=== PATIENT | male | born 1945 | race Caucasian/White ===

== ENCOUNTER → 2019-09-13 16:21 | Outpatient (BNVA) | payer MEDICARE, SELFPAY | PROVIDERS: Family Provider Nurse Practitioner Family; PCP Nurse Practitioner Family; Visit Provider Family Medicine | DX: R53.83 Other fatigue (principal) | CPT/HCPCS: 82306; 82607; 84443; 85025 ==

== ENCOUNTER → 2020-04-02 15:49 | Outpatient (BNVA) | payer MEDICARE, SELFPAY | PROVIDERS: Family Provider Nurse Practitioner Family; PCP Nurse Practitioner Family; Visit Provider Family Medicine | DX: E78.2 Mixed hyperlipidemia (principal); I10 Essential (primary) hypertension | CPT/HCPCS: 80053; 80061; 85025 ==

== ENCOUNTER 2020-09-17 17:19 | Inpatient (IN) | payer MEDICARE, SELFPAY ==
[2020-09-17] VITALS (8 sets, daily range): BP systolic 165–188; BP diastolic 80–141; PULSE 52–60; RESP 12–18; TEMP 36.6; O2SAT 94–99; BMI 30.2
--- NOTE | 2020-09-17 17:25 | XRR_ITS ---
PROCEDURE INFORMATION: Exam: XR Chest Exam date and time: 09/17/2020 6:05 PM Age: 74 years old Clinical indication: Chest pain; Type not specified; Prior surgery; Surgery type: Stents, appy TECHNIQUE: Imaging protocol: XR of the chest Views: 1 view. COMPARISON: No relevant prior studies available. FINDINGS: Lungs: No pneumonia or pulmonary edema. Pleural spaces: No pleural effusion or pneumothorax. Heart/Mediastinum: The cardiac silhouette is not enlarged. There is coronary artery disease. Vasculature: The thoracic aorta is atherosclerotic but not aneurysmal. Bones/joints: Multilevel disc degeneration in the thoracic spine. XR/XR chest 1V portable [id number] IMPRESSION: Coronary artery disease.
--- NOTE | 2020-09-17 17:27 | ECG_ITS ---
[facility] Test Date: 2020-09-17 Pat Name: Eddie Ortega Department: Room: Gender: Male Software Support Specialist: : 1945 Requested By: Omar Johns Order Number: [id number] Reading MD: BARRETT XIONG Measurements Intervals [place] Rate: 56 P: 5 DC: 142 QRS: -51 QRSD: 115 T: -33 QT: 391 QTc: 377 Interpretive Statements SINUS BRADYCARDIA PATTERN CONSISTENT WITH PULMONARY DISEASE INCOMPLETE RIGHT BUNDLE BRANCH BLOCK [90+ ms QRS DURATION, TERMINAL R IN V1/V2, 40+ ms S IN I/aVL/V4/V5/V6] LEFT ANTERIOR FASCICULAR BLOCK [QRS AXIS <= -45, QR IN I, RS IN II] MINIMAL VOLTAGE CRITERIA FOR LVH, CONSIDER NORMAL VARIANT [MEETS CRITERIA IN ONE OF: R(aVL), S(V1), R(V5), R(V5/V6)+S(V1)] NONSPECIFIC ST & T-WAVE ABNORMALITY No previous ECG available for comparison Electronically Signed On 09-17-2020 18:27:45 SYSTEM ADMINISTRATION ADVISOR by BARRETT XIONG [id number]
--- NOTE | 2020-09-17 17:46 | W.ED.CHESTPA ---
Documented by User: Omar Adames DO 09/18/20 06:21 HPI - Chest Pain General: Chief Complaint: Chest Pain Stated Complaint: CP Time Seen by Provider: 09/17/20 17:25 History of Present Illness: HPI narrative: 74-year-old male presents with complaint of chest discomfort and shortness of breath. Is been going off and on for the last 2 weeks. He states he frequently gets it when he walks to his horse [place] which is about 500 feet and has some elevation change. It will last around 5 minutes it radiates into his jaw down to his level of his wrist. Today he had a much more intense and longer lasting episode than he has in the past. He does not have any nitro at home. He does take aspirin and clopidogrel. He had a stent placed around 15 years ago at a different hospital. In the last 5 years he has not had any stress testing. 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 Onset (ago): week(s) Timing of current episode: episodic Prior episodes: Yes Onset: during exertion Pain location: substernal and left chest Pain radiation: left arm, neck and left shoulder Severity: moderate Quality: tightness and heaviness Relieving factors: rest Exacerbating factors: exertion Associated symptoms: Deny abdominal pain, dyspnea, fever(s), nausea or vomiting Treatment prior to arrival: none Review of Systems Const: Denies: fever(s), chills, body aches, change in appetite, fatigue or malaise ENMT: Denies: throat pain, ear or mastoid pain, nasal discharge or nasal congestion Card: Denies: chest pain, edema, dyspnea on exertion or orthopnea Resp: Denies: dyspnea, productive cough or non-productive cough GI: Denies: abdominal pain, nausea, vomiting, hematemesis, coffee ground emesis, diarrhea, constipation, bloating, hematochezia or melena : Denies: flank pain, dysuria, urinary frequency or urinary urgency Skin/Breast: Denies: rash or pruritus PFSH ED PFSH: Medical History CAD (coronary artery disease) Hyperlipidemia Hypertension Surgical History History of tonsillectomy (1956) Hx of appendectomy (~1958) Family History (Updated 09/17/20 @ 23:09 by Vanessa Gomez MD) Father CAD (coronary artery disease) Father had open heart surgery in his 70s Social History Smoking and tobacco status: never smoked Alcohol intake: never Substance/Drug Use: never Marital status: Physical Exam Const: COMMON NORMALS: no acute distress GENERAL APPEARANCE: cooperative and comfortable ORIENTATION/CONSCIOUSNESS: Yes awake, Yes oriented to person, Yes oriented to place and Yes oriented to time HENMT: COMMON NORMALS: normocephalic, atraumatic and hearing grossly normal bilaterally HEAD & SCALP: normocephalic and atraumatic Neck/C-Spine: COMMON NORMALS: no JVD Resp: COMMON NORMALS: normal respiratory effort, No retractions, No use of accessory muscles and clear to auscultation bilaterally AUSCULTATION: clear to auscultation bilaterally Cardio: COMMON NORMALS: no JVD, regular rate, regular rhythm and No murmurs present (Cardio) RATE: regular rate RHYTHM: regular rhythm GI: COMMON NORMALS: Soft to palpation and No hepatosplenomegaly present AUSCULTATION: Yes normoactive bowel sounds PALPATION: Yes Soft to palpation, No Tenderness to palpation present (GI), No Guarding due to palpation present (GI) and Yes No hepatosplenomegaly present Extremity: COMMON NORMALS: normal to inspection, capillary refill normal, no clubbing, cyanosis or edema, no calf tenderness and no pedal edema Neuro: SENSORIUM/ORIENTATION: Yes oriented to person, Yes oriented to place and Yes oriented to time Skin: COMMON NORMALS: no rashes or lesions noted GENERAL SKIN EXAM: no rashes or lesions noted Course Vital Signs: Vital signs: Vital Signs Temperature 98.3 F 09/18/20 04:00 Pulse Rate 47 L 09/18/20 05:03 Respiratory Rate 22 H 09/18/20 04:00 Blood Pressure 104/79 09/18/20 04:00 Pulse Oximetry 96 09/18/20 04:00 MDM - Chest Pain MDM Narrative: Medical decision making narrative: Patient initially briefly seen at the end of my shift and care transferred to Dr. Mejia. Initial chest pain labs ordered. Patient is a known history of coronary artery disease and describes increasing episodes of angina brought on by exertion. Discussed with Dr. Mejia anticipate the patient will need to be admitted for rule out and possible stress testing pending results of his labs. See Dr. Mejia's note for final gnosis and disposition. Lab Data: Labs: Lab Results 09/17/20 09/17/20 09/17/20 Range/Units 17:54 17:54 17:54 WBC 6.8 (4.0-10.0) 10^3/ uL RBC 4.74 (4.1-5.3) 10^6/u L Hgb 14.7 (11.7-16.6) g/dL Hct 42.3 (42.0-52.0) % MCV 89.2 (80-94) fL MCH 31.0 (28.0-34.0) pg MCHC 34.8 (30.0-36.0) g/dL RDW 12.1 (12.1-15.1) % Plt Count 214 (130-400) 10^3/c mm MPV 10.0 (7.4-10.4) fL Neut % (Auto) 58.7 % Lymph % (Auto) 25.5 % Howard % (Auto) 12.4 % Eos % (Auto) 2.4 % Baso % (Auto) 0.7 % Neut # (Auto) 3.96 (1.8-7.7) 10^3/u L Lymph # (Auto) 1.7 (0.8-4.8) 10^3/u L Howard # (Auto) 0.8 (0.2-0.9) 10^3/u L Eos # (Auto) 0.2 (0.0-0.8) 10^3/u L Baso # (Auto) 0.1 (0.0-0.1) 10^3/u L Nucleated RBC % (a uto) 0 % Nucleated RBCs # 0.0 /100WBC Sodium 140 (136-145) mmol/L Potassium 4.7 (3.5-5.1) mmol/L Chloride 103 (98-107) mmol/L Carbon Dioxide 26 (22-29) mmol/L Anion Gap 15.7 (5-19) BUN 24 H (8-23) mg/dL Creatinine 1.7 H (0.7-1.2) mg/dL GFR Calculation Not Reportable Glucose 106 (65-115) mg/dL Calculated Osmolal ity 294 (285-295) mOsm/k g Calcium 9.8 (8.5-10.5) mg/dL Total Bilirubin 0.4 (0.15-1.2) mg/dL AST 29 (0-40) U/L ALT 41 (0-41) U/L Alkaline Phosphata se 67 (40-130) IU/L Troponin T Baselin e 311 H* (0-15) ng/L Total Protein 7.0 (6.6-8.7) g/dL Albumin 4.6 (3.5-5.2) g/dL Globulin 2.4 (1.3-4.6) g/dL Discharge Plan Discharge Patient Disposition: Admitted As Inpatient Admit Provider: Arpit Willams Clinical Impression: Non-ST elevation DE (NSTEMI) Condition: Stable Coding Level of Care Code ED Oil Program Compliance Specialist for Chg Fwd Exam Comprehensive Documented by User: Grisel Mejia MD 09/17/20 20:21 HPI - Chest Pain General: Chief Complaint: Chest Pain Stated Complaint: CP Time Seen by Provider: 09/17/20 17:25 [facility] ED PFSH: Medical History CAD (coronary artery disease) Hyperlipidemia Hypertension Surgical History History of tonsillectomy (1956) Hx of appendectomy (~1958) Family History (Updated 09/17/20 @ 23:09 by Vanessa Gomez MD) Father CAD (coronary artery disease) Father had open heart surgery in his 70s Social History Smoking and tobacco status: never smoked Alcohol intake: never Substance/Drug Use: never Marital status: Physical Exam Const: COMMON NORMALS: no acute distress, patient oriented x3 and healthy appearing HENMT: COMMON NORMALS: normocephalic and atraumatic HEAD & SCALP: normocephalic and atraumatic Eye: COMMON NORMALS: Equal, round and reactive pupils present and EOMs intact bilaterally PUPIL: Yes Equal, round and reactive pupils present Neck/C-Spine: COMMON NORMALS: full ROM and supple Chest: COMMONS NORMALS: normal inspection of the chest and normal palpation of entire chest wall Resp: COMMON NORMALS: normal respiratory effort, No retractions, No use of accessory muscles and clear to auscultation bilaterally AUSCULTATION: clear to auscultation bilaterally Cardio: COMMON NORMALS: regular rate, regular rhythm and No murmurs present (Cardio) RATE: regular rate RHYTHM: regular rhythm GI: COMMON NORMALS: Normal to inspection, nondistended, normoactive bowel sounds present, Soft to palpation, non-tender and no masses PALPATION: Yes Soft to palpation Extremity: COMMON NORMALS: normal to inspection and full ROM Neuro: COMMON NORMALS: patient oriented x3, moves all extremities and no focal motor deficits Psych: COMMON NORMALS: mental status grossly normal, Normal thought process present and cooperative THOUGHT PROCESS: Normal thought process present Skin: COMMON NORMALS: no rashes or lesions noted and no wounds GENERAL SKIN EXAM: no rashes or lesions noted Course Vital Signs: Vital signs: Vital Signs Temperature 98.3 F 09/18/20 04:00 Pulse Rate 47 L 09/18/20 05:03 Respiratory Rate 22 H 09/18/20 04:00 Blood Pressure 104/79 09/18/20 04:00 Pulse Oximetry 96 09/18/20 04:00 MDM - Chest Pain MDM Narrative: Medical decision making narrative: Patient presents here with chest pain with elevated troponin consistent with a non-ST elevation DE. Patient is pain-free here. I did give him Lovenox I spoke to the hospitalist and will admit at this time. Lab Data: Labs: Lab Results 09/17/20 09/17/20 09/17/20 Range/Units 17:54 17:54 17:54 WBC 6.8 (4.0-10.0) 10^3/ uL RBC 4.74 (4.1-5.3) 10^6/u L Hgb 14.7 (11.7-16.6) g/dL Hct 42.3 (42.0-52.0) % MCV 89.2 (80-94) fL MCH 31.0 (28.0-34.0) pg MCHC 34.8 (30.0-36.0) g/dL RDW 12.1 (12.1-15.1) % Plt Count 214 (130-400) 10^3/c mm MPV 10.0 (7.4-10.4) fL Neut % (Auto) 58.7 % Lymph % (Auto) 25.5 % Howard % (Auto) 12.4 % Eos % (Auto) 2.4 % Baso % (Auto) 0.7 % Neut # (Auto) 3.96 (1.8-7.7) 10^3/u L Lymph # (Auto) 1.7 (0.8-4.8) 10^3/u L Howard # (Auto) 0.8 (0.2-0.9) 10^3/u L Eos # (Auto) 0.2 (0.0-0.8) 10^3/u L Baso # (Auto) 0.1 (0.0-0.1) 10^3/u L Nucleated RBC % (a uto) 0 % Nucleated RBCs # 0.0 /100WBC Sodium 140 (136-145) mmol/L Potassium 4.7 (3.5-5.1) mmol/L Chloride 103 (98-107) mmol/L Carbon Dioxide 26 (22-29) mmol/L Anion Gap 15.7 (5-19) BUN 24 H (8-23) mg/dL Creatinine 1.7 H (0.7-1.2) mg/dL GFR Calculation Not Reportable Glucose 106 (65-115) mg/dL Calculated Osmolal ity 294 (285-295) mOsm/k g Calcium 9.8 (8.5-10.5) mg/dL Total Bilirubin 0.4 (0.15-1.2) mg/dL AST 29 (0-40) U/L ALT 41 (0-41) U/L Alkaline Phosphata se 67 (40-130) IU/L Troponin T Baselin e 311 H* (0-15) ng/L Total Protein 7.0 (6.6-8.7) g/dL Albumin 4.6 (3.5-5.2) g/dL Globulin 2.4 (1.3-4.6) g/dL Discharge Plan Discharge Patient Disposition: Admitted As Inpatient Admit Provider: Arpit Willams Clinical Impression: Non-ST elevation DE (NSTEMI) Condition: Stable Coding Level of Care Code ED Oil Program Compliance Specialist for g Fwd Exam Comprehensive
[2020-09-17 18:00] LABS: Basophils # 0.1 10^3/uL (0.0-0.1); Basophils % 0.7 %; Eosinophils # 0.2 10^3/uL (0.0-0.8); Eosinophils % 2.4 %; Hematocrit 42.3 % (42.0-52.0); Hemoglobin 14.7 g/dL (11.7-16.6); Lymphocytes # 1.7 10^3/uL (0.8-4.8); Lymphocytes % 25.5 %; Mean Corpuscular HGB Conc 34.8 g/dL (30.0-36.0); Mean Corpuscular Volume 89.2 fL (80-94); Monocytes # 0.8 10^3/uL (0.2-0.9); Monocytes % 12.4 %; Neutrophils # 3.96 10^3/uL (1.8-7.7); Neutrophils % 58.7 %; Nucleated Red Blood Cells % 0 %; Platelet Count 214 10^3/cmm (130-400); Red Blood Count 4.74 10^6/uL (4.1-5.3); Red Cell Distribution Width 12.1 % (12.1-15.1); White Blood Count 6.8 10^3/uL (4.0-10.0)
[2020-09-17 18:26] LABS: Alanine Aminotransferase 41 U/L (0-41); Albumin Level 4.6 g/dL (3.5-5.2); Alkaline Phosphatase 67 IU/L (40-130); Anion Gap 15.7 (5-19); Aspartate Amino Transferase 29 U/L (0-40); Blood Urea Nitrogen 24 mg/dL (8-23); Calcium 9.8 mg/dL (8.5-10.5); Carbon Dioxide 26 mmol/L (22-29); Chloride 103 mmol/L (98-107); Globulin 2.4 g/dL (1.3-4.6); Glucose 106 mg/dL (65-115); Osmolality Calculated 294 mOsm/kg (285-295); Potassium 4.7 mmol/L (3.5-5.1); Sodium 140 mmol/L (136-145); Total Bilirubin 0.4 mg/dL (0.15-1.2)
[2020-09-17 18:27] LABS: Troponin(5th) Baseline 311 ng/L (0-15)
[2020-09-17] MEDS: enoxaparin 100 mg/mL Syringe SUBCUT (18:35)
[2020-09-17] MEDS: sodium chloride 0.9% 1,000 ML 999 ML IV (18:35)
--- NOTE | 2020-09-17 19:27 | ECG_ITS ---
[facility] Test Date: 2020-09-17 Pat Name: Eddie Ortega Department: Room: 111 Gender: Male Regional Cra: : 1945 Requested By: Omar Johns Order Number: [id number] Reading MD: Vanessa Gomez M.D. Measurements Intervals [place] Rate: 50 P: 60 CO: 156 QRS: -46 QRSD: 110 T: -35 QT: 434 QTc: 396 Interpretive Statements SINUS BRADYCARDIA PATTERN CONSISTENT WITH PULMONARY DISEASE LEFT ANTERIOR FASCICULAR BLOCK [QRS AXIS <= -45, QR IN I, RS IN II] NONSPECIFIC ST & T-WAVE ABNORMALITY Compared to ECG 09/17/2020 17:34:38 Incomplete right bundle-branch block no longer present T-wave abnormality still present Electronically Signed On 09-18-2020 23:54:38 EXTRACTOR OPERATOR HELPER by Vanessa Gomez M.D. [id number]
--- NOTE | 2020-09-17 20:23 | PM.HP ---
Providers/Chief Complaint Admitting Physician: Arpit Willams MD Chief Complaint: CP History of Present Illness Eddie Ortega is a 74 year old male with a past medical history of CAD status post stenting x2, over 15 years ago, is on aspirin and Plavix, hypertension, hyperlipidemia, who presents to [facility] due to chest pain. Patient tells me that 15 years ago, he had an episode of severe chest pain, he was in [place] at that time, he had 2 stents placed, he does not remember when, he seems like he tolerated the procedure well, he did well after, he is not sure why he is both on aspirin and Plavix for the last 15 years, no other stents placed, he was not told that he was high risk, but tells me that his casting machine adjuster at that time believed that there was a recent study that showed dual antiplatelet therapy over a year showed some benefit. Denies smoking. No history of COPD. No history of's CHF, no history of strokes. No peripheral vascular disease. 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 He tells me roughly 2 weeks ago he started to develop substernal chest pain, that ran across his chest, lasting a few seconds, he thought it might be acid reflux, as the chest pain would resolve when burping. However the chest pain became much more severe, radiating down both arms, radiating up into his jaw, no shortness of breath, no diaphoresis, no lightheadedness, no dizziness. As the chest pain became much more severe and prolonged, this morning he had severe episodes of chest pain, so his forced him to come to the hospital. Patient currently chest pain-free, has not required any nitro, was given therapeutic Lovenox,. His troponin was found to be 300. EKG showed left anterior fascicular block, incomplete RBBB, slight ST depressions in anterior chest leads, no acute ST-T wave changes, hospitalist team was called for admission. Review of Systems Const: Denies: fever(s), chills, fatigue or malaise Eyes: Denies: change in vision or blurry vision ENMT: Denies: nasal congestion Card: Reports: chest pain; Denies: edema or syncope Resp: Denies: dyspnea, productive cough, non-productive cough or wheezing GI: Denies: abdominal pain, nausea, vomiting, hematemesis, diarrhea, constipation, hematochezia or melena : Denies: flank pain, difficulty urinating, dysuria or urinary frequency Musc: Denies: neck pain or back pain Skin/Breast: Denies: rash Neuro: Denies: headache(s), dizziness or vertigo Psych: Denies: anxiety or depression Endo: Denies: polyuria or polydipsia Medications/Allergies Home Medications Medication Instructions Recorded Confirmed Last Taken Type aspirin 81 mg tablet,delayed 81 mg PO DAILY@20 09/13/19 09/17/20 09/16/20 History release cholecalciferol (vitamin D3) 125 5,000 unit PO DAILY@09/13/19 09/17/20 09/16/20 History mcg (5,000 unit) capsule melatonin 10 mg tablet 10 mg PO BEDTIME@20 tab 09/13/19 09/17/20 09/16/20 History Plavix 75 mg PO DAILY@20 09/17/20 09/17/20 09/16/20 History lisinopril 2.5 mg PO DAILY@20 09/17/20 09/17/20 09/16/20 History simvastatin 40 mg PO DAILY@20 09/17/20 09/17/20 09/16/20 History Allergies Allergy/AdvReac Type Severity Reaction Status Date / Time No Known Allergies Allergy Verified 04/02/20 14:49 PFSH Acute PFSH: Medical History (Updated 09/17/20 @ 20:32 by Arpit Willams MD) CAD (coronary artery disease) Hyperlipidemia Hypertension Surgical History History of tonsillectomy (1956) Hx of appendectomy (~1958) Family History (Updated 09/17/20 @ 20:29 by Arpit Willams MD) Father CAD (coronary artery disease) Social History (Updated 09/17/20 @ 20:29 by Arpit Willams MD) Smoking and tobacco status: never smoked Alcohol intake: never Substance/Drug Use: never Marital status: Vitals/I&O/Wt Last Vital Signs Temp 97.9 F 09/17/20 17:23 Pulse 60 09/17/20 19:57 Resp 18 09/17/20 19:57 BP 188/141 09/17/20 19:57 Pulse Ox 98 09/17/20 19:57 09/17/20 09/17/20 09/17/20 06:59 14:59 22:59 Intake Total 1000 / 1000 Balance 1000 / 1000 Weight last 48 hrs Weight 99.79 kg Physical Exam Const: COMMON NORMALS: no acute distress and patient oriented x3 GENERAL APPEARANCE: cooperative and comfortable HENMT: COMMON NORMALS: normocephalic HEAD & SCALP: normocephalic Eye: COMMON NORMALS: Equal, round and reactive pupils present and EOMs intact bilaterally GENERAL EYE: appearance normal, both eyes and all related structures PUPIL: Yes Equal, round and reactive pupils present Neck/C-Spine: COMMON NORMALS: full ROM, no lymphadenopathy, no JVD and Thyroid normal THYROID: Thyroid normal Lymph: LYMPHATIC: no lymphadenopathy noted Resp: COMMON NORMALS: normal respiratory effort, No retractions, No use of accessory muscles and clear to auscultation bilaterally AUSCULTATION: clear to auscultation bilaterally Cardio: COMMON NORMALS: no JVD, regular rate, regular rhythm, S1 normal heart sound present, S2 normal heart sound present, No gallops present (Cardio), No clicks present (Cardio) and No murmurs present (Cardio) RATE: regular rate RHYTHM: regular rhythm HEART SOUNDS: S1 normal heart sound present and S2 normal heart sound present GI: COMMON NORMALS: Normal to inspection, nondistended, normoactive bowel sounds present, Soft to palpation, non-tender and No hepatosplenomegaly present PALPATION: Yes Soft to palpation and Yes No hepatosplenomegaly present Extremity: COMMON NORMALS: normal to inspection, full ROM and no pedal edema Neuro: COMMON NORMALS: patient oriented x3, CN's II-XII intact bilaterally, moves all extremities and no focal motor deficits Psych: COMMON NORMALS: mental status grossly normal, Normal thought process present and cooperative THOUGHT PROCESS: Normal thought process present Data : 09/17/20 17:54 09/17/20 17:54 A&P Assessment and plan (1) Non-ST elevation HI (NSTEMI): -Baseline troponin 300, EKG shows sinus bradycardia, left anterior fascicular block, incomplete RBBB, slight ST depressions in anterior leads, no acute ST-T wave changes, no active chest pain Plan: -Trend troponins, serial EKGs, monitor for chest pain -Aspirin, Plavix, statin, therapeutic Lovenox -Cardiac echocardiogram ordered -Telemetry monitoring -BMP, TSH, lipid panel -N.p.o. midnight -Cardiology on consult, hopefully will have a cardiac catheterization tomorrow morning Status: Acute (2) Hypertensive emergency: -With NSTEMI, no active chest pain, and ALEXA, tells me that his blood pressures are normally less than 120s over 80s, currently in the ER it is over the 200s/ 140 -We will start nitro drip -With goal reduce blood pressure less than 160/100, avoid reducing mean arterial pressure more than 25 to 30% overs several hours Status: Acute (3) Hypertension: Status: Acute Qualifiers: Hypertension type: essential hypertension Qualified Code(s): I10 - Essential (primary) hypertension (4) Hyperlipidemia: Status: Acute Qualifiers: Hyperlipidemia type: mixed hyperlipidemia Qualified Code(s): E78.2 - Mixed hyperlipidemia (5) CAD (coronary artery disease): Status: Acute (6) ALEXA (acute kidney injury): Creatinine 1.7, baseline creatinine unknown, gentle IV hydration Status: Acute Attestations Medical Necessity Statement*: Patient requires hospitalization, outpatient with observation, for NSTEMI Coding Level of Care Code Acute Parking Meter Attendant for [facility] Diagnoses Non-ST elevation HI (NSTEMI) I21.4 Hypertensive emergency I16.1 Hypertension I10 Hypertension type: essential hypertension Hyperlipidemia E78.2 Hyperlipidemia type: mixed hyperlipidemia CAD (coronary artery disease) I25.10 ALEXA (acute kidney injury) N17.9
[2020-09-17] MEDS: clopidogrel 75 mg Tablet PO (20:24)
[2020-09-17 20:36] LABS: Troponin 5 2HR 305.2 ng/L (0-15); Troponin 5 2HR Delta -5.8 ABS# (0-10)
[2020-09-17 21:02] LABS: NT Pro B Type Natriuretic Pept 198 pg/mL (0-125)
[2020-09-17] MEDS: aspirin 81 mg EC Tablet PO (21:22)
[2020-09-17] MEDS: famotidine 20 mg/2 mL INJ IVP (21:29)
[2020-09-17] MEDS: nitroglycerin drip 50 MG/250 ML PREMIX IV (21:32)
[2020-09-17] MEDS: sodium chloride 0.9% 1,000 ML 75 ML IV (21:41)
--- NOTE | 2020-09-17 23:01 | PM.CONSULT ---
Providers/Reason For Consult Consulting Physican/Specialty*: BLANCA Gomez MD/cardiology Reason for Consult*: Patient with chest pain/elevated troponin T Attending Physician: Arpit Willams MD History of Present Illness History of Present Illness Eddie Ortega is a 74 year old male with a history of high blood pressure, dyslipidemia, atherosclerotic heart disease, status post PCI approximately 15 years ago, no presenting with complaints of chest pain off and on for the last 2 weeks. Patient complains of chest pain in the mid substernal area, radiating to both wrist and occasionally to the jaws. Within the last 2 weeks, he may have had at least half a dozen episodes of these pains, each time lasting for 5 to 10 minutes. He may have associated feeling of heaviness and gassy stomach. He gets a feeling of needing to burp with these episodes. No other associated symptoms or radiation of pain. He also been experiencing easy fatigability lately. The symptoms may occur with or without activities. Denies any unusual shortness of breath. No fever or chills. No cough. No other specific complaints. Approximately 15 years ago, he had an disorder of unstable angina and was taken to the hospital in [place]. He had 2 stent placements. Details are not available. He used to go to a security installer in [place]. Lately he has not been seeing any security installer. He has been compliant with medications. Review of Systems Narrative: CONSTITUTIONAL: No fever or chills. Easy fatigability lately. EYES: No blurring of vision or other visual disturbances lately. ENT: No hoarseness of voice, auditory disturbances or sore throat. CARDIOVASCULAR: As mentioned above. RESPIRATORY: No significant cough. GASTROINTESTINAL: No hematemesis or melena. GENITOURINARY: No dysuria or hematuria. INTEGUMENTARY: No skin rashes or history of skin cancer. NEURO: No transient ischemic attacks or amaurosis. PSYCHIATRIC: No history of psychosis or major depression. HEMATOLOGIC: No bleeding disorders or significant anemia. ENDOCRINE: No history of polyuria or polydipsia. MUSCULOSKELETAL: No recent joint pain or swelling. ALLERGY/IMMUNOLOGY: As mentioned above. Meds/Allergies Home Medications and Allergies Home Medications Medication Instructions Recorded Confirmed Last Taken Type aspirin 81 mg tablet,delayed 81 mg PO DAILY@20 09/13/19 09/17/20 09/16/20 History release cholecalciferol (vitamin D3) 125 5,000 unit PO DAILY@20 09/13/19 09/17/20 09/16/20 History mcg (5,000 unit) capsule melatonin 10 mg tablet 10 mg PO BEDTIME@20 tab 09/13/19 09/17/20 09/16/20 History Plavix 75 mg PO DAILY@20 09/17/20 09/17/20 09/16/20 History lisinopril 2.5 mg PO DAILY@20 09/17/20 09/17/20 09/16/20 History simvastatin 40 mg PO DAILY@20 09/17/20 09/17/20 09/16/20 History Allergies Allergy/AdvReac Type Severity Reaction Status Date / Time No Known Allergies Allergy Verified 04/02/20 14:49 Current Medications Current Medications Generic Name Dose Route Start Last Admin Trade Name Freq PRN Reason Stop Dose Admin Aspirin 81 mg 09/17/20 20:15 09/17/20 21:22 Aspirin 81 Mg Ec Tablet PO 81 mg QPM CALVIN Administration Clopidogrel Bisulfate 75 mg 09/17/20 20:15 09/17/20 20:24 Clopidogrel 75 Mg Tablet PO 75 mg DAILY@20 CALVIN Administration Famotidine 20 mg 09/17/20 20:35 09/17/20 21:29 Famotidine 20 Mg/2 Ml Inj IVP 20 mg Q12H CALVIN Administration Nitroglycerin/Dextrose 50 mg in 250 mls @ 0 mls/hr 09/17/20 20:30 09/17/20 21:32 Nitroglycerin Drip IV 5 mcg/min .Q0M CALVIN 1.5 mls/hr Administration Protocol Per Protocol Sodium Chloride 1,000 mls @ 75 mls/hr 09/17/20 20:35 09/17/20 21:41 Sodium Chloride 0.9% IV 75 mls/hr .[id number] CALVIN Administration PFSH Acute PFSH: Medical History CAD (coronary artery disease) Hyperlipidemia Hypertension Surgical History History of tonsillectomy (1956) Hx of appendectomy (~1958) Family History Father CAD (coronary artery disease) Father had open heart surgery in his 70s Social History Smoking and tobacco status: never smoked Alcohol intake: never Substance/Drug Use: never Marital status: Vitals/I&O/Wt Last Vital Signs Temp 97.9 F 09/17/20 17:23 Pulse 57 L 09/17/20 20:56 Resp 12 09/17/20 20:56 BP 165/80 09/17/20 20:56 Pulse Ox 99 09/17/20 20:56 09/17/20 09/17/20 09/18/20 14:59 22:59 06:59 Intake Total 1999 Balance 1999 Weight last 48 hrs Weight 220 lb Physical Exam Narrative: EXAM NARRATIVE: GENERAL: The patient is alert and oriented times three. Not in any acute distress. HEENT: No significant pallor, icterus or lymphadenopathy. The pupils are reactant to light. Oral cavity: There are no mucous membrane lesions. Funduscopic examination: The fundus is not visualized NECK: Trachea appears to be central. No masses noted. No JVD or thyromegaly appreciated. No carotid bruit. RESPIRATORY: Chest is symmetrical. No intercostals muscle retraction or any accessory muscle activation. There is no chest wall tenderness. Breath sounds are heard bilaterally. No rales or rhonchi heard. No evidence of any consolidation. BREASTS: Deferred. HEART: The PMI is in the 5th left intercostals space just inside the midclavicular line. No palpable precordial events. S1 and S2 are normal. No S3 or S4 heard. No pericardial rub or any click heard. ABDOMEN: No vessel pulsations or distention. No tenderness. No organomegaly appreciated. No abdominal bruit. Bowel sounds are normally heard. : Deferred. RECTAL: Deferred. LYMPHATIC: No lymphadenopathy noted in the neck or groin. EXTREMITIES: No edema or cyanosis. No clubbing. The pulses are symmetrical bilaterally. The radial, femoral, dorsalis pedis and the posterior tibial pulses are palpated and found to be in good volume and amplitude. MUSCULOSKELETAL: No acute joint deformities or swelling SKIN: There are no significant scars or skin rash noted. NEUROPSYCHIATRIC: The patient is alert and oriented x3. Appears to be in a good mood. The higher functions are grossly within normal limits. No tremors or rigidity noted. Data Labs: Other Labs: Laboratory Last Values WBC 6.8 10^3/uL (4.0- 10.0) 09/17/20 17:54 RBC 4.74 10^6/uL (4.1 -5.3) 09/17/20 17:54 Hgb 14.7 g/dL (11.7-1 6.6) 09/17/20 17:54 Hct 42.3 % (42.0-52.0 ) 09/17/20 17:54 MCV 89.2 fL (80-94) 09/17/20 17:54 MCH 31.0 pg (28.0-34. 0) 09/17/20 17:54 MCHC 34.8 g/dL (30.0-3 6.0) 09/17/20 17:54 RDW 12.1 % (12.1-15.1 ) 09/17/20 17:54 Plt Count 214 10^3/cmm (130 -400) 09/17/20 17:54 MPV 10.0 fL (7.4-10.4 ) 09/17/20 17:54 Neut % (Auto) 58.7 % 09/17/20 17:54 Lymph % (Auto) 25.5 % 09/17/20 17:54 [place] % (Auto) 12.4 % 09/17/20 17:54 Eos % (Auto) 2.4 % 09/17/20 17:54 Baso % (Auto) 0.7 % 09/17/20 17:54 Neut # (Auto) 3.96 10^3/uL (1.8 -7.7) 09/17/20 17:54 Lymph # (Auto) 1.7 10^3/uL (0.8- 4.8) 09/17/20 17:54 [place] # (Auto) 0.8 10^3/uL (0.2- 0.9) 09/17/20 17:54 Eos # (Auto) 0.2 10^3/uL (0.0- 0.8) 09/17/20 17:54 Baso # (Auto) 0.1 10^3/uL (0.0- 0.1) 09/17/20 17:54 Nucleated RBC % (a uto) 0 % 09/17/20 17:54 Nucleated RBCs # 0.0 /100WBC 09/17/20 17:54 Sodium 140 mmol/L (136-1 45) 09/17/20 17:54 Potassium 4.7 mmol/L (3.5-5 .1) 09/17/20 17:54 Chloride 103 mmol/L (98-10 7) 09/17/20 17:54 Carbon Dioxide 26 mmol/L (22-29) 09/17/20 17:54 Anion Gap 15.7 (5-19) 09/17/20 17:54 BUN 24 mg/dL (8-23) H 09/17/20 17:54 Creatinine 1.7 mg/dL (0.7-1. 2) H 09/17/20 17:54 GFR Calculation Not Reportable 09/17/20 17:54 Glucose 106 mg/dL (65-115 ) 09/17/20 17:54 Calculated Osmolal ity 294 mOsm/kg (285- 295) 09/17/20 17:54 Calcium 9.8 mg/dL (8.5-10 .5) 09/17/20 17:54 Total Bilirubin 0.4 mg/dL (0.15-1 .2) 09/17/20 17:54 AST 29 U/L (0-40) 09/17/20 17:54 ALT 41 U/L (0-41) 09/17/20 17:54 Alkaline Phosphata se 67 IU/L (40-130) 09/17/20 17:54 Troponin T Baselin e 311 ng/L (0-15) H* 09/17/20 17:54 Troponin T 120 Min yessica 305.2 ng/L (0-15) H 09/17/20 19:50 Delta Troponin T -5.8 ABS# (0-10) L 09/17/20 19:50 NT-Pro-B Natriuret Pep 198 pg/mL (0-125) H 09/17/20 19:50 Total Protein 7.0 g/dL (6.6-8.7 ) 09/17/20 17:54 Albumin 4.6 g/dL (3.5-5.2 ) 09/17/20 17:54 Globulin 2.4 g/dL (1.3-4.6 ) 09/17/20 17:54 A&P Assessment and plan (1) Non-ST elevation ME (NSTEMI): Patient troponin T seems to be trending down. His symptoms are suggestive of unstable angina complicated with non-ST relation myocardial infarction. EKG changes are nonspecific. Patient may be treated with subcu Lovenox, nitrates, beta-lupillo, aspirin and statin. Because of the relatively slow heartbeat, I may hold off on a beta-lupillo at this point. An echocardiogram be helpful to evaluate the LV function and rule out any other pathology. Based on the clinical progress, further recommendations will be made. Status: Acute (2) Hypertension: Currently the patient has stage II hypertension. We will try to optimize the antihypertensive medications. Status: Acute Qualifiers: Hypertension type: essential hypertension Qualified Code(s): I10 - Essential (primary) hypertension (3) Hyperlipidemia: May continue on the current medications. Status: Acute Qualifiers: Hyperlipidemia type: mixed hyperlipidemia Qualified Code(s): E78.2 - Mixed hyperlipidemia (4) ALEXA (acute kidney injury): Careful hydration would be appropriate. May repeat the BMP in the morning. Status: Acute Additional A&P Information Based on the patient's clinical progress and the results of the above, further recommendations will be made. Patient may benefit from a cardiac catheterization, to further evaluate the coronary status and decide on further management. This was discussed the patient in detail which he understood well. Thank you for the opportunity to eval this patient make these recommendations Consult Attestations Medical Necessity Statement: Patient requires continued hospital stay for close monitoring and further management Coding Level of Care Code Acute Zipper Repairer for [facility] Fwd History Detailed Exam Detailed Medical Decision Making High Complexity Diagnoses Non-ST elevation ME (NSTEMI) I21.4 Hypertension I10 Hypertension type: essential hypertension Hyperlipidemia E78.2 Hyperlipidemia type: mixed hyperlipidemia ALEXA (acute kidney injury) N17.9 Time Spent (min) 60
[2020-09-17] MEDS: sodium chloride 0.45% 1,000 ML 75 ML IV (23:24)
[2020-09-18] VITALS (29 sets, daily range): BP systolic 104–140; BP diastolic 43–80; PULSE 43–77; RESP 3–22; TEMP 36.3–36.8; O2SAT 94–98
[2020-09-18 00:08] LABS: Troponin 5 6HR 389.9 ng/L (0-15); Troponin 5 6HR Delta 78.9 ng/L (0-12)
[2020-09-18 04:59] LABS: Basophils % 0.5 %; Eosinophils # 0.2 10^3/uL (0.0-0.8); Eosinophils % 2.3 %; Hematocrit 39.6 % (42.0-52.0); Hemoglobin 13.8 g/dL (11.7-16.6); Mean Corpuscular HGB Conc 34.8 g/dL (30.0-36.0); Mean Corpuscular Hemoglobin 31.4 pg (28.0-34.0); Mean Corpuscular Volume 90.2 fL (80-94); Mean Platelet Volume 10.4 fL (7.4-10.4); Monocytes # 0.8 10^3/uL (0.2-0.9); Monocytes % 11.1 %; Neutrophils % 58.8 %; Nucleated Red Blood Cells % 0 %; Platelet Count 187 10^3/cmm (130-400); Red Blood Count 4.39 10^6/uL (4.1-5.3); Red Cell Distribution Width 12.1 % (12.1-15.1); White Blood Count 7.5 10^3/uL (4.0-10.0)
--- NOTE | 2020-09-18 05:00 | USCV_ITS ---
Janiapiyush Eddie Age: 74 Gender: M : 1945 Exam Date: 09/18/2020 06:17 Ordering Phys: Arpit Willams MD Technologist: Alexis Almodovar Exam Location: [facility] [place] Indication: NSTIMI BP: 135 / 72 HR: 52 Rhythm: Sinus Technical Quality: Fair MEASUREMENTS (Male / Female) Normal Values 2D ECHO LV Diastolic Diameter PLAX 5.6 cm 4.2 - 5.9 / 3.9 - 5.3 cm LV Systolic Diameter PLAX 3.9 cm IVS Diastolic Thickness 1.5 cm 0.6 - 1.0 / 0.6 - 0.9 cm IVS Systolic Thickness 1.6 cm LVPW Diastolic Thickness 1.2 cm 0.6 - 1.0 / 0.6 - 0.9 cm LVPW Systolic Thickness 1.3 cm LVOT Diameter 2.1 cm LV Ejection Fraction 2D Teich 35.2 % LV Ejection Fraction MOD 2C 54.5 % LV Ejection Fraction 2C AL 54.0 % LA Diameter 4.2 cm LA Width 4.3 cm LA Height 6.0 cm RA Width 3.8 cm RA Height 5.1 cm M-MODE LV Diastolic Diameter MM 4.8 cm 4.2 - 5.9 / 3.9 - 5.3 cm LV Systolic Diameter MM 4.8 cm LV Ejection Fraction MM Teich 1.6 % IVS Diastolic Thickness MM 1.5 cm 0.6 - 1.0 / 0.6 - 0.9 cm IVS Systolic Thickness MM 1.4 cm LVPW Diastolic Thickness MM 4.5 cm 0.6 - 1.0 / 0.6 - 0.9 cm LVPW Systolic Thickness MM 1.3 cm Aortic Annulus Diameter 3.6 cm LA Ao Ratio MM 1.5 MV E Point Septal Separation 1.6 cm DOPPLER AV Peak Velocity 135.0 cm/s LVOT Peak Velocity 89.0 cm/s AV Area Cont Eq vti 2.1 cm squared AV Area Cont Eq pk 2.2 cm squared MV Area PHT 5.0 cm squared Mitral E to A Ratio 1.3 MV E' Velocity 52.5 cm/s Mitral E to MV E' Ratio 11.7 Mitral E to LV E' Lateral Ratio 9.3 Mitral E to LV E' Septal Ratio 15.8 TR Peak Velocity 205.0 cm/s TR Peak Gradient 16.8 mmHg PV Peak Velocity 68.0 cm/s FINDINGS Left Ventricle Normal left ventricular size and systolic function with no regional wall motion abnormalities. Left ventricular ejection fraction is estimated at 60 %. Normal diastolic function. Right Ventricle Normal right ventricular size and systolic function. Right Atrium Normal right atrial size. Left Atrium Mildly increased left atrial size. Mitral Valve Thickened mitral valve. No mitral valve stenosis. Trace to mild mitral valve regurgitation. Aortic Valve Structurally normal trileaflet aortic valve. No aortic valve stenosis. No aortic valve regurgitation. Tricuspid Valve Structurally normal tricuspid valve. Pulmonic Valve Structurally normal pulmonic valve. No pulmonary valve stenosis. Trace pulmonary valve regurgitation. Pericardium No pericardial effusion. Aorta Normal size aortic root and proximal ascending aorta. CONCLUSIONS 1. Normal left ventricular size and systolic function with no regional wall motion abnormalities. Left ventricular ejection fraction is estimated at 60 %. Normal diastolic function. 2. Normal right ventricular size and systolic function. 3. No significant valvular abnormality. 4. No prior similar studies to compare. Dee Link MD (Electronically Signed) Final Date: 18 September 2020 11:04 S
[2020-09-18] MEDS: enoxaparin 100 mg/mL Syringe SUBCUT (05:36)
[2020-09-18 05:39] LABS: Alanine Aminotransferase 34 U/L (0-41); Albumin Level 3.8 g/dL (3.5-5.2); Alkaline Phosphatase 56 IU/L (40-130); Anion Gap 13.6 (5-19); Aspartate Amino Transferase 24 U/L (0-40); Blood Urea Nitrogen 25 mg/dL (8-23); Calcium 8.9 mg/dL (8.5-10.5); Carbon Dioxide 23 mmol/L (22-29); Chloride 105 mmol/L (98-107); Globulin 2.6 g/dL (1.3-4.6); Glucose 105 mg/dL (65-115); Magnesium 1.9 mg/dL (1.7-2.3); Osmolality Calculated 289 mOsm/kg (285-295); Phosphorus 3.5 mg/dL (2.5-4.5); Potassium 4.6 mmol/L (3.5-5.1); Sodium 137 mmol/L (136-145); Thyroid Stimulating Hormone 1.24 uIU/mL (0.27-4.20); Total Bilirubin 0.5 mg/dL (0.15-1.2); Total Protein 6.4 g/dL (6.6-8.7)
[2020-09-18 05:52] LABS: Chol HDL Ratio 3.37 mg/dL (1.0-5.00); Cholesterol 118 mg/dL (0-200); HDL Cholesterol 35 mg/dL (60-100); LDL Cholesterol Calculated 45 mg/dL (50-129); LDL HDL Ratio 1.29 RATIO (0.00-3.22); Triglycerides 191 mg/dL (0-150)
[2020-09-18] MEDS: nitroglycerin 0.4 mg sublingual Tablet SUBLINGUAL (08:27)
--- NOTE | 2020-09-18 08:28 | ECG_ITS ---
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 Measurements Intervals [place] Rate: 47 P: 1 OK: 148 QRS: -53 QRSD: 117 T: -70 QT: 442 QTc: 394 Interpretive Statements SINUS BRADYCARDIA LEFT ANTERIOR FASCICULAR BLOCK [QRS AXIS <= -45, QR IN I, RS IN II] POSSIBLE LATERAL MYOCARDIAL INFARCTION [30 ms Q WAVE IN I/aVL/V5/V6], OF INDETERMINATE AGE Compared to ECG 09/17/2020 23:13:28 Myocardial infarct finding now present T-wave abnormality no longer present Electronically Signed On 09-18-2020 23:51:20 INTERNATIONAL RELATIONS PROFESSOR by Vanessa Gomez M.D. [id number]
--- NOTE | 2020-09-18 08:35 | P.PN_ITS ---
Subjective Subjective: Interval history: Patient denied any shortness of breath or chest pain this morning but did develop substernal chest pain shortly after my evaluation. EKG and sublingual nitroglycerin was requested. Vitals/I&O/Wt Last Vital Signs Temp 98.1 F 09/18/20 07:27 Pulse 57 L 09/18/20 07:27 Resp 17 09/18/20 07:27 BP 134/78 09/18/20 07:27 Pulse Ox 95 09/18/20 07:27 09/17/20 09/18/20 09/18/20 22:59 06:59 14:59 Intake Total 1999 1602.40 / 3602.40 240 / 240 Output Total 600 / 600 350 / 350 Balance 1999 1002.40 / 3002.40 -110 / -110 Weight last 48 hrs Weight 99.79 kg Physical Exam Narrative: EXAM NARRATIVE: Heart is regular and lower extremity show no edema. Data : 09/18/20 04:12 09/18/20 04:12 A&P Assessment and plan (1) ALEXA (acute kidney injury): Ruled out. Status: Acute (2) Hypertensive emergency: Status: Acute (3) Non-ST elevation [place] (NSTEMI): Status: Acute (4) Hypertension: Status: Acute Qualifiers: Hypertension type: essential hypertension Qualified Code(s): I10 - Essential (primary) hypertension (5) Hyperlipidemia: Status: Acute Qualifiers: Hyperlipidemia type: mixed hyperlipidemia Qualified Code(s): E78.2 - Mixed hyperlipidemia (6) CAD (coronary artery disease): Status: Acute (7) Chronic kidney disease: Status: Acute Additional A&P Information PLAN: Discussed with Dr. Gomez who will see patient this morning to consider coronary angiogram as patient continues to have off-and-on pain. Attestations Medical Necessity Statement*: Patient with non-ST elevation [place] requires close inpatient monitoring and treatment. 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
[2020-09-18] MEDS: famotidine 20 mg/2 mL INJ IVP (09:25)
[2020-09-18] MEDS: nitroglycerin 1 gm/inch oint Pkt 1 INCH TOPICAL ×3 (09:25→21:08)
[2020-09-18] MEDS: sodium chloride 0.9% 1,000 ML 50 ML IV (09:26)
[2020-09-18] MEDS: diphenhydrAMINE 50 mg Capsule PO (09:26)
[2020-09-18] MEDS: sodium chloride 0.9% 1,000 ML 75 ML IV (13:13)
[2020-09-18] MEDS: sodium chloride 0.45% 1,000 ML 75 ML IV (13:14)
--- NOTE | 2020-09-18 16:14 | PC.NURSE ---
Pt transferred to photographic laboratory technician.
--- NOTE | 2020-09-18 16:30 | XACV_ITS ---
Exam Room: 1 Ht: 182 cm Wt: 100 kg BSA: 2.27 m2 Gender: Male : 1945 Any Known Allergies: No known allergies Exam Priority: Routine Indication(s): - Non-ST elevation OR Procedure(s): Procedure Description: Diagnostic procedure Procedure Description: PCI procedure Procedure Description: Left Heart Catheterization Procedure Description: Drug Eluting Coronary Stent Procedure Description: PTCA Procedure Description: Miscellaneous Procedure Description: ACT Procedure Description: Coronary Angiography Diagnostic Cath Status: Urgent Diagnostic Findings * Left main is a medium caliber vessel which he was found to have an eccentric narrowing of around 20% distally. * The left artery descending artery is a medium caliber vessel which appears to wrap around the LV apex minimally. The proximal to the mid LAD was found to have moderate diffuse disease. A long stented segment was noted in the mid LAD. Proximal to the stented segment, there was a 70 to 80% eccentric narrowing. The distal artery was found to have mild diffuse intimal irregularities. Moderate diffuse calcification also was noted in the proximal to the mid LAD. The first and second diagonal branches were found to have high-grade ostial narrowing, possible related to jailing by the stents. * The left circumflex artery is a medium to large caliber dominant vessel which was found to have high-grade ostial stenosis of around 95%. The second obtuse marginal artery was found to have around 60% proximal narrowing. * The right coronary artery is a medium caliber dominant vessel which has around 40 to 50% tubular narrowing at the mid segment. Interventional Findings * Proximal Left Anterior Descending Coronary Artery: 80% stenosis treated with AB MINI TREK 2.00X20 RX BALLOON, AB TREK 2.75X12 RX BALLOON, MDT R LANETTE 2.75X30 IRVIN, and MDT NC EUPHORA RX [id number] BALLOON. 0% residual stenosis, LEIGH ANN: 3 flow. * Proximal Left Anterior Descending Coronary Artery: 80% stenosis treated with Drug Eluting Stent. 0% residual stenosis, LEIGH ANN: 3 flow. * Proximal Circumflex Coronary Artery: 99% stenosis treated with AB MINI TREK 2.00X20 RX BALLOON, MDT R LANETTE 2.75X18 IRVIN, and MDT NC EUPHORA RX [id number] BALLOON. 0% residual stenosis, LEIGH ANN: 3 flow. Conclusions 1. No significant disease noted in the Left Main, LAD, Circumflex, or RCA coronary arteries. 2. 74-year-old white male with history of coronary disease, status post PCI 15 years ago, high blood pressure, dyslipidemia, is admitted to hospital with features of a non-ST relation myocardial infarction. Echocardiogram revealed mild hypokinesia of the LV apex with an ejection fraction of 60%. Patient had recurrent episodes of chest pain during the hospital stay. In view of his ongoing symptoms, in order to further evaluate his coronary status, a cardiac catheterization was recommended. Patient underwent left heart catheterization with left and right coronary angiogram today. The findings are as follows. 3. High-grade lesion in the ostium of the circumflex artery. High-grade lesion with moderate diffuse disease in the proximal to mid LAD. Patent stented segment of the mid LAD. Mild to moderate diffuse disease in the other vessels. LVEDP of 20 mmHg. Based on the angiogram findings, it was decided to consider PCI of the LAD and circumflex artery lesions. I reviewed and discussed the cardiac catheterization data with .Dr Clifford took over further management of this patient at this point. 4. Proximal Left Anterior Descending Coronary Artery was treated with three Balloon and Drug Eluting Stent. 5. Proximal Left Anterior Descending Coronary Artery was treated with Drug Eluting Stent. 6. Proximal Circumflex Coronary Artery was treated with two Balloon and Drug Eluting Stent. 7. Indication: Acute coronary syndrome. Patient and family was given option for CABG which was declined and they would like to proceed with percutaneous intervention.. 8. Significant two-vessel coronary artery disease was noted ostial left circumflex was 99% occluded it was treated with single drug-eluting stent postdilated with noncompliant balloon. Proximal to mid LAD was also treated with balloon angioplasty followed by two overlapping drug-eluting stent postdilated with noncompliant balloon. Excellent angiographic result was achieved. Please note that patient and family declined option for CABG. Left main appeared to be moderate and less than 40%. Due to unavailability of IVUS it was not performed.. Recommendations * 1-Return to inpatient for close monitoring and routine cath care 2-Risk factor modification for secondary prevention 3-Statin and aspirin 81 mg life--long, if tolerated 4-Patient was pre-loaded with 600 mg of Plavix, continue Plavix 75mg p.o. daily for at least one year. We will assess at the end of one year again to continue if further or not 5-Continue optimal medical management 6-Follow up with Dr. Gomez in four weeks and your primary care in 10 days. Diagnostic RX Recommendation: PCI w/o planned CABG LV EDP: 20 mmHg Left Ventriculography Findings: * LV gram was not performed because of the renal insufficiency. The LVEDP was 20 mmHg. Pressures Phase:Rest AO : 107 / 58 ( 79 ) @ 12:04:00 PM 104 / 56 ( 75 ) @ 12:10:00 PM 111 / 57 ( 79 ) @ 12:17:00 PM 123 / 63 ( 85 ) @ 12:25:00 PM 129 / 60 ( 85 ) @ 12:25:00 PM 111 / 62 ( 81 ) @ 12:38:00 PM 67 / 34 ( 47 ) @ 12:48:00 PM 115 / 61 ( 81 ) @ 12:50:00 PM 52 / 26 ( 36 ) @ 12:51:00 PM 89 / 46 ( 62 ) @ 12:52:00 PM 96 / 56 ( 72 ) @ 1:00:00 PM 106 / 57 ( 75 ) @ 1:04:00 PM 129 / 65 ( 89 ) @ 1:10:00 PM LV : 127 / 2 / @ 12:24:00 PM 126 / 2 / @ 12:25:00 PM Valves Phase:DefaultPhase AV : 1.0 @ 6:42:09 PM AV Mean Gradient: 0.0 @ 6:42:09 PM Clinical Evaluation EBL: 5mL-10mL Procedural Details Procedure Consent Obtained. Current Diagnosis : NSTEMI. Pre-Procedure Time Out. Identified patient by full name and date of as verbalized by the patient/guarantor. Does the consent match the physician's order: Yes. Accurate & Complete Informed Consent: Yes. Inpatient/Outpatient History & Physical on Chart: Yes. If H&P is completed, is and addenduem needed: No; If yes, is the addendum complete: N/A. Visualize and Verify Site with Patient/Guarantor: N/A. Relevant Radiology Images available: N/A. Pre-op teaching completed and patient verbalized understanding. The risks, benefits, and alternatives of sedation and/or procedure were discussed by physician. The patient agrees to continue. Procedure started. Dr. Gomez called and phone rolled over to a voice mailbox. A second number was called with no answer. [facility] Clinical Fraility Score: 3: Managing Well. Ornament Setter Indications: ACS > 24 hours. Chest Pain Symptom Assessment: Typical Angina Symptoms. Cardiovascular Instability: No. Correct patient, site and procedure confirmed by cath team. Current diagnosis: NSTEMI. PERRLA. Strong, equal hand research advisor bilaterally. Lungs clear x [address] Gomez called and phone rolled over to a voice mailbox. A second number was called with no answer. IV Site on Arrival: 20 gauge in the left anticubital. IV Fluids: 0.9% NaCl at KVO. 600 mL infused prior to laborer tree tapping. Pre Procedural Pulses: bilateral dorsalis pedis was 2+. Pre Procedural Pulses: bilateral posterior tibial was 2+. Pre Procedural Pulses: bilateral radial was 3+. Oxygen started at 2liters/min via nasal canula. right groin was prepped with chloroprep then draped in the usual sterile fashion. right radial was prepped with chloroprep then draped in the usual sterile fashion. Baseline sample Acquired. HR: [address] Gomez called and phone rolled over to a voice mailbox. A second number was called with no answer. Dr. Gomez called and phone rolled over to a voice mailbox. A second number was called with no answer. [facility] was called to see about Dr. Gomez. Ruby, stated that Dr. Gomez was still seeing clinic patients. Physician arrived. Patient's family unavailable due to current Covid-19 restrictions. Equipment: 6F - Radial. Cardiac Cath Pack. ACIST Manifold Kit Model BT 2000. Heparinized Saline (2 units/mL), 1000 mL bag. Physician scrubbed in. Immediate Pre-Procedure Time Out. Correct Patient: Yes; Correct Procedure: Yes; Correct Site: Yes; Correct Patient Position: Yes; Correct Supplies: Yes; Dried Flammable Prep: Yes; Blood Products Available: N/A;. Lidocaine 1% infiltrated to the right radial. Arterial access obtained. A [employer] 6 Fr TIG Radial Catheter, 110cm was advanced over the exchange wire and used for Left coronary angiography. Hand injection performed through the catheter. Exchange wire out, 260cm Glidewire in. Glidewire out. Unable to cannulate with TIG. Catheter removed over the exchange wire. A 5 albanian Willis catheter in over the exchange wire. Multiple views taken of left coronary artery. Dr. Clifford called to view cineography. Catheter redirected to the RCA. Multiple views taken of right coronary artery. Dr. Clifford arrived. Catheter removed over the exchange wire. A 5 albanian Angled Pig catheter in over the exchange wire. EDP Sample taken: LV 127/2,20; HR: 54 BPM; SpO2: 97%. Pullback taken: LV 126/2,20; AO 123/63(85); Mean: 0mmHg, Peak to Peak: 1mmHg, SEP: 13sec/min; HR: 54 BPM; SpO2: 97%. Dr. Gmoez Scrubbed out. AP pads applied. Dr Gomez called Dr Núñez to notify him of starting intervention with Dr Clifford. Catheter removed over the exchange wire. 6 albanian XB 3.5 SH guide catheter was inserted over the wire. Runthrough guidewire was advanced through the guide catheter to lesion in the mid Circ. Inflation number : 1 A AB MINI TREK 2.00X20 RX BALLOON was prepped and advanced across the Prox CX , then inflated to 14 KAMARI for 0:10 seconds. Inflation number: 2 The AB MINI TREK 2.00X20 RX BALLOON was reinflated across the Prox CX, to 8 KAMARI for 0:10 seconds. Inflation number: 3 The AB MINI TREK 2.00X20 RX BALLOON was reinflated across the Prox CX, to 8 KAMARI for 0:15 seconds. Inflation number: 4 The AB MINI TREK 2.00X20 RX BALLOON was reinflated across the Prox CX, to 8 KAMARI for 0:12 seconds. Inflation number: 5 The AB MINI TREK 2.00X20 RX BALLOON was reinflated across the Prox CX, to 20 KAMARI for 0:21 seconds. Balloon out. Results checked. Alisha Torres RN, CHANNEL PROCESS SUPERVISOR was relieved by Muna Sahu RRT as monitoring person. Inflation Number : 6 A MDT R LANETTE 2.75X18 IRVIN -Lot Number# [id number] exp date 05/22/2022was prepped and advanced across the Prox CX. The stent was deployed at 20 KAMARI for 0:26 seconds. Results checked. Stent balloon out over wire. Inflation number : 7 A MDT NC EUPHORA RX [id number] BALLOON was prepped and advanced across the Prox CX , then inflated to 16 KAMARI for 0:18 seconds. Inflation number: 8 The MDT NC EUPHORA RX [id number] BALLOON was reinflated across the Prox CX, to 14 KAMARI for 0:19 seconds. Balloon out. Results checked. Wire out. Runthrough guidewire was advanced through the guide catheter to lesion in the mid LAD. Inflation number: 1 The AB MINI TREK 2.00X20 RX BALLOON was reinflated across the Prox LAD, to 14 KAMARI for 0:13 seconds. Inflation number: 2 The AB MINI TREK 2.00X20 RX BALLOON was reinflated across the Prox LAD, to 14 KAMARI for 0:27 seconds. Inflation number: 3 The AB MINI TREK 2.00X20 RX BALLOON was reinflated across the Prox LAD, to 18 KAMARI for 0:17 seconds. Balloon out. MDT R LANETTE 2.75x30 IRVIN inserted. Unable to cross lesion. Intact stent removed. Inflation number : 1 A AB TREK 2.50X15 RX BALLOON was prepped and advanced across the Mid LAD , then inflated to 12 KAMARI for 0:11 seconds. Inflation number: 2 The AB TREK 2.50X15 RX BALLOON was reinflated across the Mid LAD, to 12 KAMARI for 0:17 seconds. Inflation number: 3 The AB TREK 2.50X15 RX BALLOON was reinflated across the Mid LAD, to 12 KAMARI for 0:11 seconds. Balloon out. ACT drawn. Results 438 seconds. Therapeutic limits - pre-heparin administration 90-150 seconds and monitoring heparin during a vascular procedure >250 seconds. MDT R LANETTE 2.75x30 IRVIN inserted. Unable to cross lesion. Intact stent removed. Family updated at this time. Inflation number : 4 A AB TREK 2.75X12 RX BALLOON was prepped and advanced across the Prox LAD , then inflated to 14 KAMARI for 0:18 seconds. Inflation number: 5 The AB TREK 2.75X12 RX BALLOON was reinflated across the Prox LAD, to 14 KAMARI for 0:20 seconds. Balloon out. Inflation Number : 6 A MDT R LANETTE 2.75X30 IRVIN -Lot Number# [id number] exp date 05/25/2022 was prepped and advanced across the Prox LAD. The stent was deployed at 14 KAMARI for 0:48 seconds. Stent balloon out over wire. Results checked. Inflation number: 7 The MDT NC EUPHORA RX [id number] BALLOON was reinflated across the Prox LAD, to 16 KAMARI for 0:15 seconds. Inflation number: 8 The MDT NC EUPHORA RX [id number] BALLOON was reinflated across the Prox LAD, to 16 KAMARI for 0:17 seconds. Inflation number: 9 The MDT NC EUPHORA RX 3.84Q17PY BALLOON was reinflated across the Prox LAD, to 10 KAMARI for 0:15 seconds. Inflation number: 10 The MDT NC EUPHORA RX 3.70O06DO BALLOON was reinflated across the Prox LAD, to 18 KAMARI for 0:23 seconds. Balloon out. Results checked. ACT drawn. Results 246 seconds. Therapeutic limits - pre-heparin administration 90-150 seconds and monitoring heparin during a vascular procedure >250 seconds. Wire out. Guide catheter out. Dr Clifford scrubbed out. A TR Band was successful obtaining hemostatsis at the Right Radial artery insertion site. TR band placed. Hemostasis obtained. Post Procedure: Pulses reassessed and unchanged. PERRLA. Strong, equal hand research advisor bilaterally. No VTE prophylaxis required. Medication's Wasted: Lidocaine 1% = 18 mL. Medication's Wasted: Nitro = 49.8 mg. Medication's Wasted: Heparin = 1000 units. Total IV fluids: 150 mL. Contrast type used: Omnipaque 300 mgI/mL, 500 mL bottle. PCI Indication: NSTE. Post-op diagnosis: severe 2 vessel CAD. Complications: none. Estimated blood loss: 5mL-10mL. Procedure completed. Patient transferred by wheelchair to 1st floor. Patient transferred by bed to 1st floor. Access Site Site: Right Radial artery Sheath Size: 6 Fr Hemostasis Method: TR Band Hemostasis Success: Successful Procedure Medications Start: 4:51 PM Stop: 4:51 PM Medication: Versed Amount: 2 mg Route: I.V. Start: 4:52 PM Stop: 4:52 PM Medication: Fentanyl Amount: 25 mcg Route: I.V. Start: 4:58 PM Stop: 4:58 PM Medication: Verapamil Amount: 5 mg Route: I.A. Start: 4:58 PM Stop: 4:58 PM Medication: Nitrogylcerin Amount: 200 mcg Route: I.A. Start: 5:05 PM Stop: 5:05 PM Medication: Heparin Amount: 5000 units Route: I.V. Start: 5:13 PM Stop: 5:13 PM Medication: Fentanyl Amount: 50 mcg Route: I.V. Start: 5:17 PM Stop: 5:17 PM Medication: Fentanyl Amount: 25 mcg Route: I.V. Start: 5:33 PM Stop: 5:33 PM Medication: Versed Amount: 2 mg Route: I.V. Start: 5:33 PM Stop: 5:33 PM Medication: Heparin Amount: 5000 units Route: I.V. Start: 5:51 PM Stop: 5:51 PM Medication: Versed Amount: 2 mg Route: I.V. Start: 6:14 PM Stop: 6:14 PM Medication: Fentanyl Amount: 50 mcg Route: I.V. Start: 6:22 PM Stop: 6:22 PM Medication: Fentanyl Amount: 50 mcg Route: I.V. Start: 6:40 PM Stop: 6:40 PM Medication: Plavix Amount: 600 mg Route: P.O. I, the attending physician, have reviewed and verified all procedure medications. Yes, all medications given per verbal order History/Risk Factors Hypertension: Yes Dyslipidemia: Yes Peripheral Arterial Disease (PAD): No Myocardial Infarction (OR): No Obesity: No Renal Disease: No Tobacco Use: Never Prior Interventions PCI: No CABG: No Valve Surgery: No Report Signatures Interventional Workflow Finalized by Anupama Clifford MD on 09/29/2020 08:17 PM Diagnostic Workflow Finalized by Dr Vanessa Gomez MD [facility] on 09/18/2020 08:09 PM
--- NOTE | 2020-09-18 16:51 | W.PM.OPSUD ---
Surgery/Procedure H&P Update DATE OF PROCEDURE: September 18, 2020 DATE H&P PERFORMED: 09/18/20 PREOP DIAGNOSIS: NSTEMI PLANNED PROCEDURE: Operation Date: 09/18/20 16:30 Proposed Procedures p Left Cardiac Catheterization(Left) - Vanessa Gomez MD PATIENT REASSESSED PRIOR TO SEDATION, WITH NO CHANGE NOTED: Yes PHYSICAL EXAM: alert, clear to auscultation bilaterally and regular rate & rhythm AIRWAY EVAL/ANESTHESIA PLAN: ASA III, Monitored Anesthesia, Local Anesthesia, Risks, benefits & alternatives of sedation and/or procedure discussed and Patient agrees to continue as planned
--- NOTE | 2020-09-18 17:37 | PM.PN ---
Subjective Subjective: Interval history: The patient had an episode of chest pain this morning after the breakfast. It middle lasted for 5 minutes or so and then gradually subsided. The pain was similar to what he had in the past but less severe. Currently he is asymptomatic. Medications: Reviewed: Yes Medication Review Details: Current Medications Acetaminophen (Acetaminophen 325 Mg Tablet) 650 mg PO Q6H PRN PRN Reason: Mild/Mod Pain Or Temp >/= 101 Aspirin (Aspirin 81 Mg Ec Tablet) 81 mg PO QPM [facility] Last Admin: 09/17/20 21:22 Dose: 81 mg Documented by: Atorvastatin Calcium (Atorvastatin 40 Mg Tablet) 20 mg PO QPM [facility] Clopidogrel Bisulfate (Clopidogrel 75 Mg Tablet) 75 mg PO DAILY@20 [facility] Last Admin: 09/17/20 20:24 Dose: 75 mg Documented by: Enoxaparin Sodium (Enoxaparin 100 Mg/Ml Syringe) 100 mg 1 mg/kg (100 mg) SUBCUT Q12H [facility] Last Admin: 09/18/20 05:36 Dose: 100 mg Documented by: Famotidine (Famotidine 20 Mg Tablet) 20 mg PO Q12H [facility] Nitroglycerin/Dextrose (Nitroglycerin Drip) 50 mg in 250 mls @ 0 mls/hr IV .Q0M [facility]; Protocol Last Titration: 09/17/20 23:08 Dose: 0 mcg/min, 0 mls/hr Documented by: Sodium Chloride (Sodium Chloride 0.45%) 1,000 mls @ 75 mls/hr IV .[id number] [facility] Last Admin: 09/18/20 13:14 Dose: 75 mls/hr Documented by: Sodium Chloride (Sodium Chloride 0.9%) 1,000 mls @ 50 mls/hr IV .Q20H ONE Stop: 09/19/20 04:26 Last Admin: 09/18/20 09:26 Dose: 50 mls/hr Documented by: Morphine Sulfate (Morphine 4 Mg/Ml Sdv 1 Ml) 2 mg IVP Q4H PRN PRN Reason: SEVERE PAIN Naloxone HCl (Naloxone 0.4 Mg/Ml Sdv) 0.1 mg IVP Q2M PRN PRN Reason: OPIATERV Nitroglycerin (Nitroglycerin 0.4 Mg Sublingual Tablet) 0.4 mg SUBLINGUAL Q5M PRN PRN Reason: CHEST PAIN Last Admin: 09/18/20 08:27 Dose: 0.4 mg Documented by: Nitroglycerin (Nitroglycerin 1 Gm/Inch Oint Pkt) 1 inch TOPICAL Q6H [facility] Last Admin: 09/18/20 15:21 Dose: 1 inch Documented by: Non-Formulary Medication (Melatonin) 10 mg PO BEDTIME@20 [facility] Ondansetron HCl (Ondansetron 2 Mg/Ml Sdv 2 Ml) 4 mg IVP Q8H PRN PRN Reason: vomiting, or N/V if npo Vitamin D (Cholecalciferol (Vitamin D3) 5,000 Unit Tablet) 5,000 unit PO DAILY@20 [facility] Vitals/I&O/Wt Last Vital Signs Temp 97.4 F L 09/18/20 14:34 Pulse 46 L 09/18/20 14:34 Resp 12 09/18/20 14:34 BP 111/61 09/18/20 14:34 Pulse Ox 95 09/18/20 14:34 09/18/20 09/18/20 09/18/20 06:59 14:59 22:59 Intake Total 1602.40 / 3602.40 1240 / 1240 Output Total 600 / 600 1350 / 1350 Balance 1002.40 / 3002.40 -110 / -110 Weight last 48 hrs Weight 220 lb Physical Exam Narrative: EXAM NARRATIVE: GENERAL: The patient is alert and oriented times three. Not in any acute distress. HEENT: No significant pallor, icterus or lymphadenopathy. The pupils are reactant to light. Oral cavity: There are no mucous membrane lesions. NECK: Trachea appears to be central. No masses noted. No JVD or thyromegaly appreciated. No carotid bruit. RESPIRATORY: Chest is symmetrical. No intercostals muscle retraction or any accessory muscle activation. There is no chest wall tenderness. Breath sounds are heard bilaterally. No rales or rhonchi heard. No evidence of any consolidation. BREASTS: Deferred. HEART: The PMI is in the 5th left intercostals space just inside the midclavicular line. No palpable precordial events. S1 and S2 are normal. No S3 or S4 heard. No pericardial rub or any click heard. ABDOMEN: No vessel pulsations or distention. No tenderness. No organomegaly appreciated. No abdominal bruit. Bowel sounds are normally heard. : Deferred. RECTAL: Deferred. LYMPHATIC: No lymphadenopathy noted in the neck or groin. EXTREMITIES: No edema or cyanosis. No clubbing. The pulses are symmetrical bilaterally. The radial, femoral, dorsalis pedis and the posterior tibial pulses are palpated and found to be in good volume and amplitude. MUSCULOSKELETAL: No acute joint deformities or swelling SKIN: There are no significant scars or skin rash noted. NEUROPSYCHIATRIC: The patient is alert and oriented x3. Appears to be in a good mood. The higher functions are grossly within normal limits. No tremors or rigidity noted. Const: COMMON NORMALS: alert Resp: COMMON NORMALS: clear to auscultation bilaterally AUSCULTATION: clear to auscultation bilaterally Neuro: SENSORIUM/ORIENTATION: Yes alert Data : 09/18/20 04:12 09/18/20 04:12 Other Labs: Laboratory Last Values WBC 7.5 10^3/uL (4.0-10.0) 09/18/20 04:12 RBC 4.39 10^6/uL (4.1-5.3) 09/18/20 04:12 Hgb 13.8 g/dL (11.7-16.6) 09/18/20 04:12 Hct 39.6 % (42.0-52.0) L 09/18/20 04:12 MCV 90.2 fL (80-94) 09/18/20 04:12 MCH 31.4 pg (28.0-34.0) 09/18/20 04:12 MCHC 34.8 g/dL (30.0-36.0) 09/18/20 04:12 RDW 12.1 % (12.1-15.1) 09/18/20 04:12 Plt Count 187 10^3/cmm (130-400) 09/18/20 04:12 MPV 10.4 fL (7.4-10.4) 09/18/20 04:12 Neut % (Auto) 58.8 % 09/18/20 04:12 Lymph % (Auto) 27.0 % 09/18/20 04:12 [place] % (Auto) 11.1 % 09/18/20 04:12 Eos % (Auto) 2.3 % 09/18/20 04:12 Baso % (Auto) 0.5 % 09/18/20 04:12 Neut # (Auto) 4.40 10^3/uL (1.8-7.7) 09/18/20 04:12 Lymph # (Auto) 2.0 10^3/uL (0.8-4.8) 09/18/20 04:12 [place] # (Auto) 0.8 10^3/uL (0.2-0.9) 09/18/20 04:12 Eos # (Auto) 0.2 10^3/uL (0.0-0.8) 09/18/20 04:12 Baso # (Auto) 0.0 10^3/uL (0.0-0.1) 09/18/20 04:12 Nucleated RBC % (auto) 0 % 09/18/20 04:12 Nucleated RBCs # 0.0 /100WBC 09/18/20 04:12 Sodium 137 mmol/L (136-145) 09/18/20 04:12 Potassium 4.6 mmol/L (3.5-5.1) 09/18/20 04:12 Chloride 105 mmol/L (98-107) 09/18/20 04:12 Carbon Dioxide 23 mmol/L (22-29) 09/18/20 04:12 Anion Gap 13.6 (5-19) 09/18/20 04:12 BUN 25 mg/dL (8-23) H 09/18/20 04:12 Creatinine 1.4 mg/dL (0.7-1.2) H 09/18/20 04:12 GFR Calculation Not Reportable 09/18/20 04:12 Glucose 105 mg/dL (65-115) 09/18/20 04:12 Calculated Osmolality 289 mOsm/kg (285-295) 09/18/20 04:12 Calcium 8.9 mg/dL (8.5-10.5) 09/18/20 04:12 Phosphorus 3.5 mg/dL (2.5-4.5) 09/18/20 04:12 Magnesium 1.9 mg/dL (1.7-2.3) 09/18/20 04:12 Total Bilirubin 0.5 mg/dL (0.15-1.2) 09/18/20 04:12 AST 24 U/L (0-40) 09/18/20 04:12 ALT 34 U/L (0-41) 09/18/20 04:12 Alkaline Phosphatase 56 IU/L (40-130) 09/18/20 04:12 Troponin T Baseline 311 ng/L (0-15) H* 09/17/20 17:54 Troponin T 120 Minute 305.2 ng/L (0-15) H 09/17/20 19:50 Delta Troponin T -5.8 ABS# (0-10) L 09/17/20 19:50 Troponin T Hi Sens 6Hr 389.9 ng/L (0-15) H 09/17/20 23:25 Troponin T Hi Sens 6Hr Delta 78.9 ng/L (0-12) H* 09/17/20 23:25 NT-Pro-B Natriuret Pep 198 pg/mL (0-125) H 09/17/20 19:50 Total Protein 6.4 g/dL (6.6-8.7) L 09/18/20 04:12 Albumin 3.8 g/dL (3.5-5.2) 09/18/20 04:12 Globulin 2.6 g/dL (1.3-4.6) 09/18/20 04:12 Triglycerides 191 mg/dL (0-150) H 09/18/20 04:12 Cholesterol 118 mg/dL (0-200) 09/18/20 04:12 LDL Cholesterol, Calc 45 mg/dL (50-129) L 09/18/20 04:12 HDL Cholesterol 35 mg/dL (60-100) L 09/18/20 04:12 LDL/HDL Ratio 1.29 RATIO (0.00-3.22) 09/18/20 04:12 Cholesterol/HDL Ratio 3.37 mg/dL (1.0-5.00) 09/18/20 04:12 TSH 1.24 uIU/mL (0.27-4.20) 09/18/20 04:12 Echo: My impression: 1. Normal left ventricular size and systolic function with no regional wall motion abnormalities. Left ventricular ejection fraction is estimated at 60 %. Normal diastolic function. 2. Normal right ventricular size and systolic function. 3. No significant valvular abnormality. 4. No prior similar studies to compare. A&P Assessment and plan (1) Non-ST elevation SD (NSTEMI): Patient troponin T had a 6-hour delta of 78. Currently he has no new symptoms. The EKG showed T wave inversions in the anterolateral and inferior leads. Echocardiogram revealed hypokinesia of the LV apex. LV ejection fraction was around 60%. In view of the patient's ongoing symptoms and the clinical presentation, for further management of his condition, he requires a cardiac cauterization. The risk of bleeding, hematoma, vascular injury, myocardial infarction, CVA, renal failure and other concomitant complications were explained in detail. Patient understood this well and consented to proceed. We will go ahead and schedule the angiogram for this evening. Status: Acute (2) Hypertension: The blood pressure seems to be getting under control. May continue on the current medications. Status: Acute Qualifiers: Hypertension type: essential hypertension Qualified Code(s): I10 - Essential (primary) hypertension (3) Hyperlipidemia: May continue on the current medications. Status: Acute Qualifiers: Hyperlipidemia type: mixed hyperlipidemia Qualified Code(s): E78.2 - Mixed hyperlipidemia (4) ALEXA (acute kidney injury): The creatinine is improving. The current reaction is 1.4. We will continue the hydration. Status: Acute Additional A&P Information Based on the cardiac catheterization data, further recommendations will be made. Attestations Medical Necessity Statement*: Patient requires continued hospital stay for close monitoring and further management Coding Level of Care Code Acute Automotive Services Manager for [facility] Diagnoses Non-ST elevation SD (NSTEMI) I21.4 Hypertension I10 Hypertension type: essential hypertension Hyperlipidemia E78.2 Hyperlipidemia type: mixed hyperlipidemia ALEXA (acute kidney injury) N17.9
--- NOTE | 2020-09-18 19:14 | PC.NURSE ---
Pt returned from cardiac cath lab technologist at approximately 1855. Pt had no c/o pain or discomfort. no needs voiced. VS WNL.
[2020-09-18] MEDS: sodium chloride 0.9% 1,000 ML 100 ML IV (20:32)
[2020-09-18] MEDS: famotidine 20 mg Tablet PO (21:06)
[2020-09-18] MEDS: temazepam 15 mg Capsule PO (21:06)
[2020-09-18] MEDS: atorvastatin 40 mg Tablet 20 MG PO (21:07)
[2020-09-18] MEDS: clopidogrel 75 mg Tablet PO (21:08)
[2020-09-19] VITALS (11 sets, daily range): BP systolic 109–152; BP diastolic 46–75; PULSE 45–71; RESP 7–25; TEMP 36.6–36.7; O2SAT 93–98
[2020-09-19] MEDS: nitroglycerin 1 gm/inch oint Pkt 1 INCH TOPICAL ×2 (02:08→08:45)
[2020-09-19 03:40] LABS: Basophils % 0.5 %; Eosinophils # 0.2 10^3/uL (0.0-0.8); Eosinophils % 2.6 %; Hematocrit 38.4 % (42.0-52.0); Hemoglobin 12.9 g/dL (11.7-16.6); Lymphocytes # 1.8 10^3/uL (0.8-4.8); Lymphocytes % 24.3 %; Mean Corpuscular HGB Conc 33.6 g/dL (30.0-36.0); Mean Corpuscular Hemoglobin 31.2 pg (28.0-34.0); Mean Corpuscular Volume 92.8 fL (80-94); Mean Platelet Volume 10.2 fL (7.4-10.4); Monocytes # 0.8 10^3/uL (0.2-0.9); Monocytes % 10.6 %; Neutrophils # 4.56 10^3/uL (1.8-7.7); Neutrophils % 61.7 %; Nucleated Red Blood Cells % 0 %; Platelet Count 178 10^3/cmm (130-400); Red Blood Count 4.14 10^6/uL (4.1-5.3); Red Cell Distribution Width 12.3 % (12.1-15.1); White Blood Count 7.4 10^3/uL (4.0-10.0)
[2020-09-19 04:00] LABS: Alanine Aminotransferase 35 U/L (0-41); Albumin Level 3.3 g/dL (3.5-5.2); Alkaline Phosphatase 54 IU/L (40-130); Anion Gap 13.2 (5-19); Aspartate Amino Transferase 21 U/L (0-40); Blood Urea Nitrogen 25 mg/dL (8-23); Calcium 8.8 mg/dL (8.5-10.5); Carbon Dioxide 23 mmol/L (22-29); Chloride 105 mmol/L (98-107); Globulin 2.4 g/dL (1.3-4.6); Glucose 105 mg/dL (65-115); Magnesium 1.9 mg/dL (1.7-2.3); Osmolality Calculated 289 mOsm/kg (285-295); Potassium 4.2 mmol/L (3.5-5.1); Sodium 137 mmol/L (136-145); Total Bilirubin 0.3 mg/dL (0.15-1.2); Total Protein 5.7 g/dL (6.6-8.7)
--- NOTE | 2020-09-19 05:34 | PC.NURSE ---
received order from Dr Willams to hold 0630 dose of lovenox
[2020-09-19] MEDS: sodium chloride 0.9% 1,000 ML 100 ML IV (05:47)
[2020-09-19] MEDS: pantoprazole DR 40 mg Tablet PO (08:45)
--- NOTE | 2020-09-19 09:19 | PC.CHAP ---
Pastoral Care Encounter/Spiritual Assessment Type of Contact [] Declined housemaid visit [] Patient/Family/Request visit [] Outpatient visit [] Follow-up visit [] Physician referral [] Code/Alert [x] Routine visit [] Staff referral [] Actively dying [] Patient sleeping [] Family support [] [] Out of room [] Palliative care [] [] Receiving care in room [] Pre-surgical visit [] Trauma [] Long length of stay [] ICU visit [] Other: Relational/Emotional Strength [] Patient feels connected with others/family/visitors/staff [] Distress [] Loneliness/isolation [] Abandonment Spirituality of Patient [] Person of Keren [] Attends Restorationist of their Keren [] Believes in Prayer [] Reads Bible or Buddhist materials [] There are Spiritual issues to be addressed Candy Department Manager Interventions [x] Prayer [x] Active listening [x] Non-anxious presence [x] Spiritual/emotional support [] Crisis/trauma care [] Spiritual counseling [] Bereavement support [] Provided bereavement packet [] Provided Bible/devotional materials [] Provided toy/stuffed animal, coloring book to patient or family member [] Provided Communion [] Anointing/[place] [] Salvation [x] Completed spiritual assessment [] Other: Impact on Illness or Injury [] Angry [] Fearful [] Anxious [] Often cries [] Exhaustion [] Unable to work [] Unable to attend congregation [] Unable to walk/stand [] Unable to read [] Unable to drive [] Unable to eat/drink [] Unable to sleep [] Unable to be with family [] Patient intubated [] Other: Summary had procedure and preparing to return home... feels very confident with staff and hospital .. Time spent with patient 15 min
--- NOTE | 2020-09-19 10:43 | P.DS_ITS ---
Discharge Providers Date of Admission: 09/18/20 09:17 Date of Discharge: September 19, 2020 Attending Provider at Admission: Arpit Willams MD Attending Provider at Discharge: Ramesh Gil MD Diagnoses at Discharge Discharge Diagnosis (1) Non-ST elevation IN (NSTEMI): Status: Acute (2) Hypertension: Status: Acute Qualifiers: Hypertension type: essential hypertension Qualified Code(s): I10 - Essential (primary) hypertension (3) Hyperlipidemia: Status: Acute Qualifiers: Hyperlipidemia type: mixed hyperlipidemia Qualified Code(s): E78.2 - Mixed hyperlipidemia (4) ALEXA (acute kidney injury): Status: Acute Permanent problem details: Ruled out. Patient has chronic kidney disease stage III Reason for Visit Reason for Visit: CP Hospital Course Hospital Course Patient presented with chest pain and diagnosed with non-ST elevation IN. Patient had coronary angiogram showing significant coronary disease requiring percutaneous intervention. Catheterization report is not available. Please refer to report when appears in electronic medical records. This morning patient denies any shortness of breath or chest pain. Denies abdominal pain. Reports good appetite and oral intake. Feels strong enough to go home. Outpatient follow-up with Dr. Gomez in cardiology clinic will be made. Patient was told to follow-up with primary care physician within next 4 to 7 days. Patient is aware that he cannot stop Plavix unless told otherwise by his doctor. Patient has been on Plavix for 15 years. Physical Exam Narrative: EXAM NARRATIVE: Lungs are clear and heart is regular. Abdomen soft and nontender with positive bowel sounds. No lower extremity edema. Discharge Data Data Completed and Pending: Completed Studies During Hospitalization Category Date Time Status XR chest 1V shelly ble [id number] Stat Exams 09/17/20 17:25 Completed CV echo complete* [id number] Routine Ultrasound 09/18/20 05:00 Completed Pending at discharge Category Date Time Status PATIENT CARE COORDINATOR request for service Routin e Exams 09/18/20 16:30 Taken Complete Blood Co unt w/Auto AM LABS Lab 09/20/20 04:00 Ordered Comprehensive Met abolic Panel AM LA BS Lab 09/20/20 04:00 Ordered Magnesium AM LABS Lab 09/20/20 04:00 Ordered Phosphorus AM LAB S Lab 09/20/20 04:00 Ordered Labs from last 24 hours 09/19/20 09/19/20 03:18 03:18 WBC 7.4 RBC 4.14 Hgb 12.9 Hct 38.4 L MCV 92.8 MCH 31.2 MCHC 33.6 RDW 12.3 Plt Count 178 MPV 10.2 Neut % (Auto) 61.7 Lymph % (Auto) 24.3 [place] % (Auto) 10.6 Eos % (Auto) 2.6 Baso % (Auto) 0.5 Neut # (Auto) 4.56 Lymph # (Auto) 1.8 [place] # (Auto) 0.8 Eos # (Auto) 0.2 Baso # (Auto) 0.0 Nucleated RBC % (a uto) 0 Nucleated RBCs # 0.0 Sodium 137 Potassium 4.2 Chloride 105 Carbon Dioxide 23 Anion Gap 13.2 BUN 25 H Creatinine 1.5 H GFR Calculation Not Reportable Glucose 105 Calculated Osmolal ity 289 Calcium 8.8 Phosphorus 4.0 Magnesium 1.9 Total Bilirubin 0.3 AST 21 ALT 35 Alkaline Phosphata se 54 Total Protein 5.7 L Albumin 3.3 L Globulin 2.4 Vitals: Last Vital Signs Temp 98.1 F 09/19/20 08:00 Pulse 71 09/19/20 09:07 Resp 17 09/19/20 08:00 BP 132/75 09/19/20 08:00 Pulse Ox 95 09/19/20 09:07 Discharge Plan Discharge Patient Disposition: Home Condition: Stable Prescriptions: New nitroglycerin 0.4 mg Tablet, Sublingual 0.4 mg sublingual Q5M PRN (Reason: Chest Pain) Qty: 25 RF: 0 Continued aspirin [[place] Aspirin] 81 mg tablet,delayed release (DR/EC) 81 mg PO DAILY@20 RF: 0 melatonin 10 mg tablet 10 mg PO BEDTIME@20 RF: 0 cholecalciferol (vitamin D3) 125 mcg (5,000 unit) capsule 5,000 unit PO DAILY@20 RF: 0 Plavix 75 mg tablet 75 mg PO DAILY@20 RF: 0 simvastatin 40 mg tablet 40 mg PO DAILY@20 RF: 0 lisinopril 5 mg tablet 2.5 mg PO DAILY@20 RF: 0 Discharge Orders: Discharge Order (Routine); Ordered 09/19/20 Ordered By: Ramesh Gil Referrals: Vanessa Gomez MD [Physician] - 2 weeks Kate Lazo FNP [Nurse Practitioner] - 1 week Discharge Diet: Advance as tolerated Discharge Activity: Increase activity as tolerated Patient Instructions: Left Heart Catheterization (DC), Right Heart Catheterization (DC), Coronary Angioplasty (DC) Activity Restrictions/Additional Instructions: Please call your doctor or present to emergency department if your condition worsens or you develop diarrhea, lightheadedness, fatigue or see blood in your stool or black stool. Discharge Attestations Time Spent in Discharge Care*: greater than 30 min Quality Metrics Clinical Quality Measures During this hospital stay, did patient experience: AMI Clinical Trial Participant: No Contraindication to aspirin (AMI): Aspirin given Contraindication to statin: Statin prescribed Coding Level of Care Code Acute Cdl Program Coordinator for [facility] Diagnoses Non-ST elevation IN (NSTEMI) I21.4 Hypertension I10 Hypertension type: essential hypertension Hyperlipidemia E78.2 Hyperlipidemia type: mixed hyperlipidemia ALEXA (acute kidney injury) N17.9
--- NOTE | 2020-09-19 11:29 | PC.NURSE ---
Discharge instructions given per the physician's orders. Patient verbalized understanding of teaching and medication changes and did not have any further questions. IV has been removed. Patient dressed self. Patient's will take patient home in private vehicle.
--- NOTE | 2020-09-19 13:37 | PM.PN ---
Subjective Subjective: Interval history: The patient is feeling okay with no chest pain or chest tightness. No shortness of breath. Vital signs remained stable. No hematoma bleeding from the arterial puncture site. Medications: Reviewed: Yes Medication Review Details: Current Medications Acetaminophen (Acetaminophen 325 Mg Tablet) 650 mg PO Q6H PRN PRN Reason: Mild/Mod Pain Or Temp >/= 101 Aspirin (Aspirin 81 Mg Ec Tablet) 81 mg PO QPM [facility] Last Admin: 09/17/20 21:22 Dose: 81 mg Documented by: Atorvastatin Calcium (Atorvastatin 40 Mg Tablet) 20 mg PO QPM [facility] Clopidogrel Bisulfate (Clopidogrel 75 Mg Tablet) 75 mg PO DAILY@20 [facility] Last Admin: 09/17/20 20:24 Dose: 75 mg Documented by: Enoxaparin Sodium (Enoxaparin 100 Mg/Ml Syringe) 100 mg 1 mg/kg (100 mg) SUBCUT Q12H [facility] Last Admin: 09/18/20 05:36 Dose: 100 mg Documented by: Famotidine (Famotidine 20 Mg Tablet) 20 mg PO Q12H [facility] Nitroglycerin/Dextrose (Nitroglycerin Drip) 50 mg in 250 mls @ 0 mls/hr IV .Q0M [facility]; Protocol Last Titration: 09/17/20 23:08 Dose: 0 mcg/min, 0 mls/hr Documented by: Sodium Chloride (Sodium Chloride 0.45%) 1,000 mls @ 75 mls/hr IV .[id number] [facility] Last Admin: 09/18/20 13:14 Dose: 75 mls/hr Documented by: Sodium Chloride (Sodium Chloride 0.9%) 1,000 mls @ 50 mls/hr IV .Q20H ONE Stop: 09/19/20 04:26 Last Admin: 09/18/20 09:26 Dose: 50 mls/hr Documented by: Morphine Sulfate (Morphine 4 Mg/Ml Sdv 1 Ml) 2 mg IVP Q4H PRN PRN Reason: SEVERE PAIN Naloxone HCl (Naloxone 0.4 Mg/Ml Sdv) 0.1 mg IVP Q2M PRN PRN Reason: OPIATERV Nitroglycerin (Nitroglycerin 0.4 Mg Sublingual Tablet) 0.4 mg SUBLINGUAL Q5M PRN PRN Reason: CHEST PAIN Last Admin: 09/18/20 08:27 Dose: 0.4 mg Documented by: Nitroglycerin (Nitroglycerin 1 Gm/Inch Oint Pkt) 1 inch TOPICAL Q6H [facility] Last Admin: 09/18/20 15:21 Dose: 1 inch Documented by: Non-Formulary Medication (Melatonin) 10 mg PO BEDTIME@20 [facility] Ondansetron HCl (Ondansetron 2 Mg/Ml Sdv 2 Ml) 4 mg IVP Q8H PRN PRN Reason: vomiting, or N/V if npo Vitamin D (Cholecalciferol (Vitamin D3) 5,000 Unit Tablet) 5,000 unit PO DAILY@20 [facility] Vitals/I&O/Wt Last Vital Signs Temp 98.1 F 09/19/20 11:30 Pulse 52 L 09/19/20 11:46 Resp 20 H 09/19/20 11:46 BP 152/74 09/19/20 11:46 Pulse Ox 95 09/19/20 11:30 09/18/20 09/19/20 09/19/20 22:59 06:59 14:59 Intake Total 3750 / 4990 1025 / 6015 1105 / 1105 Output Total 250 / 1600 650 / 2250 Balance 3500 / 3390 375 / 3765 1105 / 1105 Weight last 48 hrs Weight 220 lb Physical Exam Narrative: EXAM NARRATIVE: GENERAL: The patient is alert and oriented times three. Not in any acute distress. HEENt. No pallor or icterus. Oral cavity: There are no mucous membrane lesions. NECK: Trachea appears to be central. No masses noted. No JVD or thyromegaly appreciated. No carotid bruit. RESPIRATORY: Chest is symmetrical. No intercostals muscle retraction or any accessory muscle activation. There is no chest wall tenderness. Breath sounds are heard bilaterally. No rales or rhonchi heard. No evidence of any consolidation. BREASTS: Deferred. HEART: The PMI is in the 5th left intercostals space just inside the midclavicular line. No palpable precordial events. S1 and S2 are normal. No S3 or S4 heard. No pericardial rub or any click heard. ABDOMEN: No vessel pulsations or distention. No tenderness. No organomegaly appreciated. No abdominal bruit. Bowel sounds are normally heard. : Deferred. RECTAL: Deferred. LYMPHATIC: No lymphadenopathy noted in the neck or groin. EXTREMITIES: No edema or cyanosis. No clubbing. The pulses are symmetrical bilaterally. The radial, femoral, dorsalis pedis and the posterior tibial pulses are palpated and found to be in good volume and amplitude. MUSCULOSKELETAL: No acute joint deformities or swelling SKIN: There are no significant scars or skin rash noted. NEUROPSYCHIATRIC: The patient is alert and oriented x3. Appears to be in a good mood. The higher functions are grossly within normal limits. No tremors or rigidity noted. Const: COMMON NORMALS: alert Resp: COMMON NORMALS: clear to auscultation bilaterally AUSCULTATION: clear to auscultation bilaterally Neuro: SENSORIUM/ORIENTATION: Yes alert Data : 09/19/20 03:18 09/19/20 03:18 A&P Assessment and plan (1) Non-ST elevation [place] (NSTEMI): Patient status post PCI of the LAD and obtuse marginal artery lesions. Currently seems to be stable. Status: Acute (2) Hypertension: The blood pressure seems to be getting under control. May continue on the current medications. Status: Acute Qualifiers: Hypertension type: essential hypertension Qualified Code(s): I10 - Essential (primary) hypertension (3) Hyperlipidemia: May continue on the current medications. Status: Acute Qualifiers: Hyperlipidemia type: mixed hyperlipidemia Qualified Code(s): E78.2 - Mixed hyperlipidemia (4) ALEXA (acute kidney injury): Kidney function seems to be stable. Status: Acute Additional A&P Information Since the patient remained stable, may be discharged home today. He will be seen in the clinic in a week by the nurse practitioner. I may see him in the office in 3 weeks. Attestations Medical Necessity Statement*: Possible discharge home today Coding Level of Care Code Acute Ladle Handler for [facility] Diagnoses Non-ST elevation IL (NSTEMI) I21.4 Hypertension I10 Hypertension type: essential hypertension Hyperlipidemia E78.2 Hyperlipidemia type: mixed hyperlipidemia ALEXA (acute kidney injury) N17.9
== END 2020-09-19 11:00 | disposition home or self-care (01) | DRG 247 ==
LOC: ER 19:55 → CSU 20:20
PROVIDERS: Family Medicine; Internal Medicine Cardiovascular Disease; Admitting Provider Family Medicine; Emergency Provider Emergency Medicine; Visit Provider Internal Medicine
PROC: 027135Z Dilation of Coronary Artery, Two Arteries with Two Drug-eluting Intraluminal Devices, Percutaneous Approach (ICD-10-PCS; 2020-09-18 16:30)
DX: I21.4 Non-ST elevation (NSTEMI) myocardial infarction (principal); I45.2 Bifascicular block; I16.1 Hypertensive emergency; I25.10 Atherosclerotic heart disease of native coronary artery without angina pectoris; Z95.5 Presence of coronary angioplasty implant and graft; N18.30 Chronic kidney disease, stage 3 unspecified; I12.9 Hypertensive chronic kidney disease with stage 1 through stage 4 chronic kidney disease, or unspecified chronic kidney disease; E78.2 Mixed hyperlipidemia; Z79.82 Long term (current) use of aspirin; Z79.02 Long term (current) use of antithrombotics/antiplatelets
CPT/HCPCS: 36415; 71045; 80053; 80061; 83735; 83880; 84100; 84443; 84484; 85025; 85347; 93005; 93306; 93452; 94664; 96360; 96372; 99285; C1725; C1769; C1874; C1887; C1894; C9600; C9601; G0378; J1644; J1650; J2250; J3010; J3490; J7030; Q0163; Q9967

== ENCOUNTER → 2020-09-26 13:58 | Outpatient (BNVA) | payer MEDICARE, SELFPAY | PROVIDERS: PCP Family Medicine; Visit Provider Nurse Practitioner Family | DX: I25.10 Atherosclerotic heart disease of native coronary artery without angina pectoris (principal) | CPT/HCPCS: 80048 ==

== ENCOUNTER 2020-10-09 09:14 | Emergency (ER) | payer MEDICARE, SELFPAY ==
[2020-10-09 09:22] VITALS: BP 160/78; PULSE 62; RESP 16; TEMP 36.3; O2SAT 98; BMI 30.9
--- NOTE | 2020-10-09 09:36 | ED_ITS ---
HPI - Male Genitourinary General: Chief complaint: Urogenital-Male Stated complaint: PEEING BLOOD Time Seen by Provider: 10/09/20 09:18 Source: patient Mode of arrival: ambulatory Limitations: no limitations History of Present Illness: HPI Narrative: Patient is a very nice 74-year-old male who presents to ED today with a complaint of hematuria and severe dysuria that began last night. He is not having any abdominal/suprapubic pain. No flank pain. He has not been running fevers. He does complain of urinary urgency but then states voids small amounts. He has no history of BPH/prostate problems or bladder cancer. Patient was hospitalized earlier this month for a NSTEMI and ALEXA. He states he did not have a catheter placed at any time during that visit. MD Complaint: dysuria and other (hematuria) Onset (ago): hour(s) Severity: moderate Relieving factors: none Exacerbating factors: urination Associated symptoms: Reports dysuria and hematuria; Deny nausea or vomiting Review of Systems Const: Denies: fever(s), chills, body aches, fatigue or malaise Eyes: Denies: change in vision or blurry vision Card: Denies: chest pain, syncope or pre-syncope Resp: Denies: dyspnea GI: Denies: abdominal pain, nausea, vomiting or diarrhea : Reports: dysuria, urinary urgency and hematuria; Denies: flank pain, difficulty urinating, urinary hesitancy, urinary dribbling, genital pain, genital lesions, testicular pain, testicular mass or scrotal swelling Musc: Denies: neck pain, back pain or joint pain Skin/Breast: Denies: rash Neuro: Denies: headache(s) [facility] ED PFSH: Medical History (Updated 10/09/20 @ 10:52 by MYNOR Limon) CAD (coronary artery disease) Hyperlipidemia Hypertension Surgical History (Updated 09/26/20 @ 13:19 by Tona Ta LPN) History of tonsillectomy (1956) Hx of appendectomy (~1958) Family History Father CAD (coronary artery disease) Father had open heart surgery in his 70s Social History Smoking and tobacco status: never smoked Alcohol intake: never Marital status: Physical Exam Const: COMMON NORMALS: no acute distress, average body habitus, patient oriented x3, no limitations, healthy appearing, alert and well nourished GENERAL APPEARANCE: cooperative Resp: COMMON NORMALS: normal respiratory effort GI: COMMON NORMALS: Normal to inspection, nondistended, normoactive bowel sounds present, Soft to palpation, non-tender, No hepatosplenomegaly present and no masses PALPATION: Yes Soft to palpation and Yes No hepatosplenomegaly present : COMMON NORMALS: Yes no CVA tenderness BLADDER/KIDNEY EXAM: Yes no CVA tenderness Back/Pelvis: COMMON NORMALS: no CVA tenderness Extremity: COMMON NORMALS: no pedal edema Neuro: COMMON NORMALS: patient oriented x3 SENSORIUM/ORIENTATION: Yes alert Skin: COMMON NORMALS: no rashes or lesions noted GENERAL SKIN EXAM: no rashes or lesions noted Course Vital Signs: Vital signs: Vital Signs Temperature 97.3 F L 10/09/20 09:22 Pulse Rate 62 10/09/20 09:22 Respiratory Rate 16 10/09/20 09:22 Blood Pressure 160/78 10/09/20 09:22 Pulse Oximetry 98 10/09/20 09:22 MDM - Male MDM Narrative: Medical decision making narrative: Patient has absolutely no abdominal pain or flank pain. He only complains of dysuria stating it feels like razor blades when I urinate . He is also complaining of some urinary urgency but reports voiding small amounts. Vital signs are stable. Patient's kidney functions are normal. He does have a white count of 17.8. UA with gross hematuria. I do not see anywhere on patient's last hospitalization where he had a catheter placed. Based on patient's history and clinical presentation I have a low suspicion for nephro/ureterolithiasis or obstruction. Will go ahead and place him on antibiotics and if symptoms do not improve he will need to see Dr. Hernandez for further evaluation. Strict return to ED precautions given. Lab Data: Labs: Lab Results 10/09/20 10/09/20 10/09/20 Range/Units 10:00 10:00 10:00 WBC 17.8 H (4.0-10.0) 10^3/ uL RBC 4.51 (4.1-5.3) 10^6/u L Hgb 14.3 (11.7-16.6) g/dL Hct 41.6 L (42.0-52.0) % MCV 92.2 (80-94) fL MCH 31.7 (28.0-34.0) pg MCHC 34.4 (30.0-36.0) g/dL RDW 12.3 (12.1-15.1) % Plt Count 164 (130-400) 10^3/c mm MPV 10.0 (7.4-10.4) fL Neut % (Auto) 81.2 % Lymph % (Auto) 7.2 % [place] % (Auto) 10.4 % Eos % (Auto) 0.2 % Baso % (Auto) 0.3 % Neut # (Auto) 14.49 H (1.8-7.7) 10^3/u L Lymph # (Auto) 1.3 (0.8-4.8) 10^3/u L [place] # (Auto) 1.9 H (0.2-0.9) 10^3/u L Eos # (Auto) 0.0 (0.0-0.8) 10^3/u L Baso # (Auto) 0.1 (0.0-0.1) 10^3/u L Nucleated RBC % (a uto) 0 % Nucleated RBCs # 0.0 /100WBC Sodium 135 L (136-145) mmol/L Potassium 5.3 H (3.5-5.1) mmol/L Chloride 101 (98-107) mmol/L Carbon Dioxide 24 (22-29) mmol/L Anion Gap 15.3 (5-19) BUN 21 (8-23) mg/dL Creatinine 1.2 (0.7-1.2) mg/dL GFR Calculation Not Reportable Glucose 116 H (65-115) mg/dL Calculated Osmolal ity 284 L (285-295) mOsm/k g Calcium 8.9 (8.5-10.5) mg/dL Total Bilirubin 1.2 (0.15-1.2) mg/dL AST 15 (0-40) U/L ALT 30 (0-41) U/L Alkaline Phosphata se 65 (40-130) IU/L Total Protein 6.7 (6.6-8.7) g/dL Albumin 4.3 (3.5-5.2) g/dL Globulin 2.4 (1.3-4.6) g/dL Urine Color Red (Yellow) Urine Appearance Bloody A (CLEAR) Urine pH 6.5 (5-7) Ur Specific Gravit y 1.010 (1.005-1.030) Urine Protein 3+ H (Negative) Urine Glucose (UA) Norm (Normal) Urine Ketones 1+ H (Negative) Urine Blood 3+ H (Negative) Urine Nitrate Negative (Negative) Urine Bilirubin Neg (Negative) Urine Urobilinogen Norm (Negative) mg/dL Ur Leukocyte Sarah ase Negative (Negative) Urine RBC >100 H (0-2) /hpf Urine WBC 0-4 H (0-5) /hpf Ur Squamous Epith Cells 0-4 H (0-5) /hpf Amorphous Sediment Not Reportable Urine Bacteria Trace (NONE) /hpf Discharge Plan Discharge Patient Disposition: Home Clinical Impression: Hematuria Qualifiers: Hematuria type: gross Qualified Code(s): R31.0 - Gross hematuria Condition: Stable Prescriptions: New Bactrim DS 800-160 mg tablet 1 tab PO BID 7 Days Qty: 14 RF: 0 No Action aspirin [[place] Aspirin] 81 mg tablet,delayed release (DR/EC) 81 mg PO DAILY@20 RF: 0 melatonin 10 mg tablet 10 mg PO BEDTIME@20 RF: 0 cholecalciferol (vitamin D3) 125 mcg (5,000 unit) capsule 5,000 unit PO DAILY@20 RF: 0 Plavix 75 mg tablet 75 mg PO DAILY@20 RF: 0 simvastatin 40 mg tablet 40 mg PO DAILY@20 RF: 0 lisinopril 5 mg tablet 2.5 mg PO DAILY@20 RF: 0 nitroglycerin 0.4 mg Tablet, Sublingual 0.4 mg sublingual Q5M PRN (Reason: Chest Pain) Qty: 25 RF: 0 Discharge Orders: Discharge ED (Routine); Ordered 10/09/20 Ordered By: Yamilka Courtney Referrals: Iona Montes MD [Primary Care Provider] - Patient Instructions: Hematuria - Male, Acute Hematuria (ED) Activity Restrictions/Additional Instructions: As we discussed because of your burning with urination and urinary urgency we will go ahead and place you on antibiotics for a possible urinary tract infection. If the blood in your urine and other symptoms do not subside you will most likely need follow-up with Dr. Hernandez. I have placed your information with case management who should contact you shortly to set you up with this appointment. As we discussed you need to return to the emergency department immediately for severe abdominal pain, flank pain, fevers, inability to urinate, or any other concerns you may have. I hope you begin to feel better soon. Coding Level of Care Code ED Student Services Coordinator for Chg Fwd Exam Detailed
[2020-10-09 10:06] LABS: Basophils # 0.1 10^3/uL (0.0-0.1); Basophils % 0.3 %; Eosinophils % 0.2 %; Hematocrit 41.6 % (42.0-52.0); Hemoglobin 14.3 g/dL (11.7-16.6); Lymphocytes # 1.3 10^3/uL (0.8-4.8); Lymphocytes % 7.2 %; Mean Corpuscular HGB Conc 34.4 g/dL (30.0-36.0); Mean Corpuscular Hemoglobin 31.7 pg (28.0-34.0); Mean Corpuscular Volume 92.2 fL (80-94); Monocytes # 1.9 10^3/uL (0.2-0.9); Monocytes % 10.4 %; Neutrophils # 14.49 10^3/uL (1.8-7.7); Neutrophils % 81.2 %; Nucleated Red Blood Cells % 0 %; Platelet Count 164 10^3/cmm (130-400); Red Blood Count 4.51 10^6/uL (4.1-5.3); Red Cell Distribution Width 12.3 % (12.1-15.1); White Blood Count 17.8 10^3/uL (4.0-10.0)
[2020-10-09 10:13] LABS: Add Urine Microscopic? YES; Bilirubin Urine Neg (Negative); Blood Urine 3+ (Negative); Glucose Urine UA Norm (Normal); Ketones Urine 1+ (Negative); Leukocyte Esterase Urine Negative (Negative); Nitrate Urine Negative (Negative); Protein Urine 3+ (Negative); RBC Urine >100 /hpf (0-2); Squamous Epithelial Cell Urine 0-4 /hpf (0-5); Urine Appearance Bloody (CLEAR); Urine Color Red (Yellow); Urobilinogen Urine Norm (Negative); WBC Urine 0-4 /hpf (0-5); pH Urine 6.5 (5-7)
[2020-10-09 10:14] LABS: Add Urine Culture? Yes; Bacteria Urine TRACE /hpf
[2020-10-09 10:23] LABS: Alanine Aminotransferase 30 U/L (0-41); Albumin Level 4.3 g/dL (3.5-5.2); Alkaline Phosphatase 65 IU/L (40-130); Blood Urea Nitrogen 21 mg/dL (8-23); Calcium 8.9 mg/dL (8.5-10.5); Carbon Dioxide 24 mmol/L (22-29); Chloride 101 mmol/L (98-107); Globulin 2.4 g/dL (1.3-4.6); Glucose 116 mg/dL (65-115); Osmolality Calculated 284 mOsm/kg (285-295); Sodium 135 mmol/L (136-145); Total Bilirubin 1.2 mg/dL (0.15-1.2); Total Protein 6.7 g/dL (6.6-8.7)
[2020-10-09 10:35] LABS: Anion Gap 15.3 (5-19); Aspartate Amino Transferase 15 U/L (0-40); Potassium 5.3 mmol/L (3.5-5.1)
--- NOTE | 2020-10-10 15:10 | DCPLANNER ---
chronic disease manager had message to schedule a follow up appointment for patient with Dr. Hernandez. chronic disease manager called the office of Dr. Hernandez, spoke with Caroline, gave clinic patients information. chronic disease manager was told that patients information would be printed and reviewed. Clinic will call patient with appointment information.
--- NOTE | 2020-10-16 08:16 | DCPLANNER ---
Patient had a follow up appointment scheduled for 10.12.[address] Hernandez - patient did attend appointment
== END 2020-10-09 11:02 | disposition home or self-care (01) ==
PROVIDERS: Emergency Provider Physician Assistant; PCP Family Medicine
DX: R31.0 Gross hematuria (principal); Z79.82 Long term (current) use of aspirin; Z79.02 Long term (current) use of antithrombotics/antiplatelets; I25.10 Atherosclerotic heart disease of native coronary artery without angina pectoris; E78.5 Hyperlipidemia, unspecified; I10 Essential (primary) hypertension
CPT/HCPCS: 80053; 81001; 85025; 87077; 87086; 87186; 99283

== ENCOUNTER → 2020-10-12 08:41 | Outpatient (BNVA) | payer MEDICARE, SELFPAY | PROVIDERS: PCP Family Medicine; Visit Provider Urology | DX: N30.01 Acute cystitis with hematuria; R39.89 Other symptoms and signs involving the genitourinary system | CPT/HCPCS: 81003 ==

== ENCOUNTER → 2020-11-02 08:59 | Outpatient (BNVA) | payer MEDICARE, SELFPAY | PROVIDERS: PCP Family Medicine; Visit Provider Urology | DX: N30.01 Acute cystitis with hematuria (principal); R39.89 Other symptoms and signs involving the genitourinary system; Z12.5 Encounter for screening for malignant neoplasm of prostate | CPT/HCPCS: 81003; G0103 ==

== ENCOUNTER 2020-11-19 08:04 | Outpatient (CLI) | payer MEDICARE, SELFPAY ==
--- NOTE | 2020-11-19 08:45 | USCV_ITS ---
Eddie Ortega Age: 74 Gender: M : 1945 Exam Date: 11/19/2020 08:15 Ordering Phys: Vanessa Gomez MD ([email or web address]) Technologist: Michelle Ramires [place] [facility] [place]: [place] stenosis Risk Factors: Previous Vascular Surgery: Right Brachial BP: / Left Brachial BP: / Right Left Velocity (cm/s) Spectral Plaque Velocity (cm/s) Spectral Plaque Syst/Diast Broadening Syst/Diast Broadening 73.70/ 9.40 Prox CCA 87.10 / 12.10 62.80/ 11.00 Mid CCA 55.60 / 10.50 57.30/ 13.30 Distal CCA 59.70 / 15.30 Hetro 49.60/ 10.30 Prox ICA 53.20 / 16.30 47.90/ 12.80 Mid ICA 58.20 / 12.80 70.50/ 22.40 Distal ICA 84.30 / 29.30 67.50 ECA 69.60 Hetro 1.12 ICA/CCA 1.51 Antegrade Vertebral Antegrade 42.30/ 10.00 cm/s 44.30/ 10.90 cm/s Tri Subclavian Tri 64.00 94.80 FINDINGS Moderate heterogeneous plaques of the bifurcations bilaterally. Normal Doppler flow velocities in the external carotid and subclavian arteries bilaterally. Antegrade flow in the vertebral arteries bilaterally. CONCLUSIONS Moderate heterogeneous plaques of the bifurcations bilaterally, suggesting less than 50% stenosis. No significant stenosis in the subclavian or external carotid arteries Dr Vanessa Gomez MD [facility] (Electronically Signed) Final Date: 20 Nov 2020 09:24 S
== END 2020-11-19 08:05 | disposition home or self-care (01) ==
LOC: RAD 08:06
PROVIDERS: PCP Family Medicine; Visit Provider Internal Medicine Cardiovascular Disease
DX: I65.23 Occlusion and stenosis of bilateral carotid arteries (principal)
CPT/HCPCS: 93880

== ENCOUNTER → 2021-04-05 00:01 | Outpatient (BNVA) | payer MEDICARE, SELFPAY | PROVIDERS: PCP Family Medicine; Visit Provider Nurse Practitioner Family | DX: J01.00 Acute maxillary sinusitis, unspecified (principal); Z20.822 Contact with and (suspected) exposure to COVID-19 | CPT/HCPCS: 87635 ==

== ENCOUNTER → 2021-05-06 08:19 | Outpatient (BNVA) | payer MEDICARE, SELFPAY | PROVIDERS: PCP Family Medicine; Visit Provider Urology | DX: R39.89 Other symptoms and signs involving the genitourinary system (principal); N30.01 Acute cystitis with hematuria; Z12.5 Encounter for screening for malignant neoplasm of prostate | CPT/HCPCS: 81003; 84153 ==

== ENCOUNTER → 2021-06-17 12:04 | Outpatient (BNVA) | payer MEDICARE, SELFPAY | PROVIDERS: PCP Family Medicine; Visit Provider Family Medicine | DX: I25.10 Atherosclerotic heart disease of native coronary artery without angina pectoris (principal); I10 Essential (primary) hypertension; E78.2 Mixed hyperlipidemia | CPT/HCPCS: 80053; 80061; 84403; 85025 ==

== ENCOUNTER → 2021-12-23 10:43 | Outpatient (BNVA) | payer MEDICARE, SELFPAY | PROVIDERS: PCP Family Medicine; Visit Provider Internal Medicine Cardiovascular Disease | DX: I25.10 Atherosclerotic heart disease of native coronary artery without angina pectoris (principal); I65.21 Occlusion and stenosis of right carotid artery; I10 Essential (primary) hypertension; E78.2 Mixed hyperlipidemia | CPT/HCPCS: 99214 ==

== ENCOUNTER → 2021-12-25 08:40 | Outpatient (BNVA) | payer MEDICARE, SELFPAY | PROVIDERS: PCP Family Medicine; Visit Provider Family Medicine | DX: I25.10 Atherosclerotic heart disease of native coronary artery without angina pectoris (principal); E78.5 Hyperlipidemia, unspecified; I10 Essential (primary) hypertension; E55.9 Vitamin D deficiency, unspecified; R73.09 Other abnormal glucose | CPT/HCPCS: 80053; 80061; 82306; 83036; 84403; 85025 ==

== ENCOUNTER → 2022-08-21 17:00 | Outpatient (BNVA) | payer MEDICARE, SELFPAY | PROVIDERS: PCP Family Medicine; Visit Provider Family Medicine | DX: R53.83 Other fatigue (principal); E78.2 Mixed hyperlipidemia; I10 Essential (primary) hypertension; Z12.5 Encounter for screening for malignant neoplasm of prostate | CPT/HCPCS: 80053; 80061; 84403; 84443; 85025; G0103 ==

== ENCOUNTER → 2022-10-17 09:13 | Outpatient (BNVA) | payer MEDICARE, SELFPAY | PROVIDERS: PCP Family Medicine; Visit Provider Family Medicine | DX: R74.8 Abnormal levels of other serum enzymes (principal) | CPT/HCPCS: 80053 ==

== ENCOUNTER → 2022-10-29 08:48 | Outpatient (BNVA) | payer MEDICARE, SELFPAY | PROVIDERS: PCP Family Medicine; Visit Provider Family Medicine | DX: R73.09 Other abnormal glucose (principal); Z13.1 Encounter for screening for diabetes mellitus | CPT/HCPCS: 82951; 83036 ==

== ENCOUNTER 2022-11-24 07:07 | Outpatient (CLI) | payer MEDICARE, SELFPAY ==
--- NOTE | 2022-11-24 07:45 | US_ITS ---
WS: [id number] Complete ABDOMINAL ULTRASOUND HISTORY: R63.4 - Abnormal weight loss COMPARISON: None available. Liver: 15.8 cm in length. Normal size liver and echogenicity. No bile duct dilatation or mass. Portal Vein: Normal hepatopetal flow with monophasic waveform. Gallbladder: Normally distended gallbladder with no stones or wall thickening. CBD: 0.3 cm Pancreas: Tail is obscured by bowel gas. The body and head are negative. Right kidney: 10.3 cm x 4.0 x 5.2 cm. Cortex:1.0 cm. Normal size kidney with no hydronephrosis. Cyst mid kidney measures 1.6 x 2.1 x 1.8 cm. No solid mass . Left kidney: 9.6 cm x 4.2 cm x 5.4 cm. Cortex: 1.3 cm. Normal size kidney. Simple cyst lower pole measures 3.1 x 2.9 x 3.0 cm. Spleen: Top normal size spleen at 13.1 cm. No mass identified. Aorta and IVC: Unremarkable abdominal aorta and IVC. US/US abdomen complete* [id number] Impression: 1. Normal gallbladder. 2. Spleen is top normal size at 13.1 cm. 3. Bilateral renal cysts. No obstruction.
== END 2022-11-24 07:08 | disposition home or self-care (01) ==
LOC: RAD 07:11
PROVIDERS: PCP Family Medicine; Visit Provider Family Medicine
DX: R63.4 Abnormal weight loss (principal); N28.1 Cyst of kidney, acquired
CPT/HCPCS: 76700

== ENCOUNTER → 2023-03-04 12:05 | Outpatient (BNVA) | payer MEDICARE, SELFPAY | PROVIDERS: PCP Family Medicine; Visit Provider Family Medicine | DX: N18.9 Chronic kidney disease, unspecified; E78.5 Hyperlipidemia, unspecified; E11.22 Type 2 diabetes mellitus with diabetic chronic kidney disease; I12.9 Hypertensive chronic kidney disease with stage 1 through stage 4 chronic kidney disease, or unspecified chronic kidney disease | CPT/HCPCS: 80053; 80061; 83036; 85025 ==

== ENCOUNTER → 2023-04-13 10:40 | Outpatient (BNVA) | payer MEDICARE, SELFPAY | PROVIDERS: PCP Family Medicine; Visit Provider Internal Medicine | DX: N18.32 Chronic kidney disease, stage 3b (principal) | CPT/HCPCS: 80048; 81003; 82040; 82306; 82542; 83735; 84100; 84550; 85025 ==

== ENCOUNTER → 2024-03-16 08:56 | Outpatient (BNVA) | payer MEDICARE, SELFPAY | PROVIDERS: PCP Family Medicine; Visit Provider Family Medicine | DX: Z12.5 Encounter for screening for malignant neoplasm of prostate (principal); Z79.899 Other long term (current) drug therapy; E11.9 Type 2 diabetes mellitus without complications | CPT/HCPCS: 80053; 80061; 82306; 83036; 84443; 85025; G0103 ==

== ENCOUNTER → 2024-04-05 10:33 | Outpatient (BNVA) | payer MEDICARE, SELFPAY | PROVIDERS: PCP Family Medicine; Visit Provider Family Medicine | DX: N18.9 Chronic kidney disease, unspecified (principal) | CPT/HCPCS: 80061 ==